=== PATIENT | female | born 1970 | race Caucasian/White ===

== ENCOUNTER 2022-01-10 15:51 | Outpatient (CLI) | payer BC, SELFPAY ==
--- NOTE | 2022-01-10 16:00 | US_ITS ---
STUDY: SUPERFICIAL ULTRASOUND - BILATERAL KNEES REASON FOR EXAM: Female, 51 years old. LLE SYNOVIAL CYST TECHNIQUE: A superficial ultrasound was performed with real-time and static jimenes-scale imaging. COMPARISON: None. FINDINGS: In the left lower extremity posterior to the knee there is a 4.6 x 3.3 x 2 cm cystic lesion compatible with Granda''s cyst. In the right lower extremity posterior to the knee there is a similar 2.6 x 3.3 x 0.8 cm cystic lesion also compatible with Granda''s cyst. 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 Electronically Signed: Heron Roberts MD at 23:40 EDT ,
== END 2022-01-10 23:59 | disposition home or self-care (01) ==
LOC: US 15:58
PROVIDERS: PCP Family Medicine; Referring Provider Physician Assistant; Visit Provider Physician Assistant
DX: M25.469 Effusion, unspecified knee (principal); M71.22 Synovial cyst of popliteal space [Baker], left knee
CPT/HCPCS: 76882

== ENCOUNTER 2022-06-17 05:53 | Day surgery (SDC) | payer BC, SELFPAY ==
--- NOTE | 2022-06-11 16:24 | PCM.HP.BLA ---
History and Physical Date of Admission: 06/17/22 HPI: The patient is a 51 year old female presenting for pre-operative visit. She is scheduled for Hysteroscopy D&C, possible polyp resection for AUB and thickened endometrium on 06/17/22. Procedure discussed along with risks, benefits and complications. Other alternatives discussed for management. Consent form signed? Yes. ? ? PAST MEDICAL HISTORY PAST MEDICAL HISTORY Diagnosis Date ? BRCA negative 08/14/2020 ? [employer] Common cancer gene panel ? 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 Constipation 08/16/2014 ? COVID-19 virus infection 10/22/2021 ? 10/2021 ? 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 Ex-smoker 05/06/2016 ? Started at age 20 up to 1 PPD and still smokes off and on for short periods of time. Quite 2000 ? Fibroid uterus 08/29/2014 ? Folliculitis 01/28/2019 ? Ganglion cyst 03/18/2019 ? History of COVID-19 10/22/2021 ? 10/2021 ? Lung nodules 03/26/2022 ? Malignant neoplasm of right female breast (HCC) 08/02/2020 ? Papanicolaou smear of cervix with atypical squamous cells of undetermined significance (ASC-US) 2004 ? negative hpv ? PMH - PAST MEDICAL HISTORY OF 1992 ? bulimia ? ? PAST SURGICAL HISTORY PAST SURGICAL HISTORY Procedure Laterality Date ? IMPLANON INSERTION ? 02/29/2008 ? IMPLANON INSERTION ? 06/24/2011 ? IMPLANON REMOVAL ? 02/25/2011 ? IMPLANON REMOVAL ? 05/16/2014 ? MASTECTOMY, SIMPLE, COMPLETE Right 08/14/2021 ? MASTECTOMY,SIMPLE Right 08/14/2020 ? DCIS ? PAST SURGICAL HISTORY OF ? 1971 ? congenital club foot left side repair at less than [age] year of age. ? RPR UMBILICAL HERNIA < 5 YRS REDUCIBLE ? 1977 ? Hernia repair, umbilical ? ? ? CURRENT MEDICATIONS Current Outpatient Medications Medication Sig Dispense Refill ? calcitriol (ROCALTROL) 0.5 mcg capsule Take 2 capsules by mouth once daily. 60 capsule 5 ? tamoxifen (NOLVADEX) 20 mg tablet Take 1 tablet (20 mg) by mouth once daily. 90 tablet 3 ? Vitamin A17-Jajim Acid 0.5-1 mg tab Take by mouth. ? ? ? iron,carb/vit C/vit B12/folic (IRON 100 PLUS ORAL) Take by mouth. ? ? ? Ca-D3-mag ql-pifz-iyq-kendrick-bor 600 mg calcium- 20 mcg-50 mg tab Take by mouth. ? ? ? inulin (FIBER GUMMIES) 2 gram chew Take 2 tablets by mouth once daily. ? 0 ? No current facility-administered medications for this visit. ? ? ALLERGIES: Patient has no known allergies. ? PERSONAL HISTORY: SOCIAL HISTORY Social History ? Tobacco Use ? Smoking status: Former ? ? Packs/day: 0.50 ? ? Years: 5.00 ? ? Pack years: 2.50 ? ? Types: Cigarettes ? ? Quit date: 04/04/1999 ? ? Years since quittin.2 ? Smokeless tobacco: Never Vaping Use ? Vaping Use: Never used Substance Use Topics ? Alcohol use: Not Currently ? ? Alcohol/week: 6.0 - 7.0 standard drinks ? ? Types: 6 - 7 Glasses of Wine (5oz) per week ? Drug use: No ? FAMILY HISTORY: FAMILY HISTORY FAMILY HISTORY Problem Relation Age of Onset ? Cancer Mother ? ? skin ? Alcohol/Drug Father ? ? Emphysema Father ? ? smoker ? No Known Problems Sister ? ? No Known Problems Sister ? ? Breast Cancer Maternal Grandmother 65 ? recurrence age 85 ? Cancer Maternal Grandmother ? ? kidney ? Alzheimer's Disease Maternal Grandmother ? ? Cancer Maternal Grandfather ? ? LUNG ? Arthritis Paternal Grandmother ? ? Heart Paternal Grandmother ? ? ENLARGED HEART, ? Diabetes Paternal Grandfather ? ? Emphysema Paternal Grandfather ? ? Hypertension Paternal Grandfather ? ? No Known Problems Daughter ? ? No Known Problems Son ? ? No Known Problems Son ? ? Cancer Maternal Aunt 74 ? uterine ? other (Polio) Maternal Aunt 4 ? Prostate Cancer Maternal Uncle ? ? Skin Cancer Maternal Uncle ? ? Coronary Artery Disease Maternal Uncle ? ? ? REVIEW OF SYMPTOMS: GENERAL: denies fevers or chills ENDOCRINOLOGY: has not been on steroids Cardiology : denies palpitations or chest pain Respiratory: denies SOB or cough Hematology: denies history of prolonged bleeding or easy bruising or VTE Allergy: Denies history of personal or family history of allergy to anesthesia ? PHYSICAL EXAMINATION: ? VITALS: Blood pressure 104/62, weight 146 lb (66.2 kg), last menstrual period 07/18/2020. ? GENERAL: The patient is well nourished, well hydrated in no acute distress. , The patient is oriented to time, place, and person. NECK: Supple. No lynphadenopathy, normal thyroid, no thyromegaly. LUNGS: Clear to auscultation bilaterally. no wheezes, rhonchi or rales HEART: Regular rate and rhythm, Normal heart sounds, and No murmurs or gallops ? IMPRESSION: AUB, endometrial thickending on US ? PLAN: The risks/benefits/alternatives and personal involved for the planned hysteroscopy D&C were reviewed with the patient. Her questions were answered to her satisfaction and she desires to proceed. Consent was signed. I reviewed with her postop instructions and expectations. ? ? I have reviewed and updated past medical and surgical history, medications and allergies Assessment & Plan Assessment/Plan (1) Abnormal uterine bleeding (AUB): (2) Endometrial thickening on ultrasound:
[2022-06-17 06:35] LABS: Internal QC Validated? YES +Cl - CLEAR BKGD; Pregnancy, Urine Negative Negative
[2022-06-17 06:41] LABS: Hematocrit 34.8 % (37-47); Hemoglobin 11.5 g/dL (12.0-15.0); Mean Corpuscular Hgb 31.3 pg (27.0-32.0); Mean Corpuscular Volume 94.8 fL (81-99); Mean Platelet Vol. 9.2 fl (6.2-12.0); Platelet Count 257 K/mm3 (150-450); RBC Distribution Width CV 12.4 % (11.6-14.6); RBC Distribution Width SD 43.3 fl (35.1-43.9); Red Blood Count 3.67 M/mm3 (4.2-5.4); White Blood Count 4.9 K/mm3 (4.4-11.0)
[2022-06-17 06:42] VITALS: BP 105/72; PULSE 77; RESP 18; TEMP 36.8; O2SAT 99; BMI 25.0
[2022-06-17] MEDS: Acetaminophen 500 MG Tablet 1000 MG PO (06:49)
[2022-06-17] MEDS: Ketorolac 30 MG/ML Syringe IV (06:49)
[2022-06-17] MEDS: Lactated Ringers 1,000 ML 15 ML IV (06:50)
--- NOTE | 2022-06-17 07:30 | EMB_PTH ---
PATIENT: [facility] LOC: [facility] [place] U#:[id number] AGE/SX: 51/F ROOM: RE06/17/[address]: Dr. Lisa Mosley, MDDOB: 1970 BED: DIS: 06/17/2022 SPEC #: [id number] RECD: 06/17/22 10:58 STATUS: [facility] #: [id number] SRIRAM: 06/17/22 07:[address]: Lisa Mosley DEPT: SURGICAL PATHOLOGY RECD BY: Jada Wheeler ENTERED: 06/17/22 11:43 SP TYPE: ENDOM BX/C HAYDEE DR: Dr. 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 See comment. KENA:alfonso 06/23/2022 COMMENT The specimen is sent to [facility] for expert opinion, reviewed by Dr. Tracie Zaman and the above diagnosis is rendered. Immunohistochemical stains performed at [facility] supports the above diagnosis. The complete report is viewable in the patient's EMR. Case has been reviewed in consultation with Dr. Friedman who concurs with the above diagnosis. IDC:AM MICROSCOPIC DESCRIPTION Slides are reviewed. GROSS DESCRIPTION Received in fixative is one container labeled with the patient's name and designated endometrial curettings. The specimen consists of multiple fragments of pink hemorrhagic soft tissue that in aggregate measure 7 x 4.5 x 2 cm. The entire specimen is submitted in 13 cassettes. / KENA:alfonso 06/17/2022 TC:0 CPT: 07296
--- NOTE | 2022-06-17 07:46 | PCM.OPRPT ---
Report of Operation Date of Procedure: 06/17/22 Pre-Operative Diagnosis: Thickened endometrium, AUB, personal use of Tamoxifen Post-Operative Diagnosis: same Surgery/Procedure Performed:: Hysteroscopy, D&C Description of Surgical Findings:: Thickened Endometrial tissue- does not appear polypoid. Was able to clear out all tissue and at end of proceudre Endometrium was thin and both tubal ostia visualized. Surgeon: Lisa Mosley skimmer reverberatory: None Type of Anesthesia: MAC Specimen's removed: Endometrial Curettings Drains: none Estimated Blood Loss (mL): 15cc Fluids Replaced: 800 Description of Procedure: Informed consent was obtained the patient was taken the operating room she was placed in supine position. She was given anesthesia. She was then [facility] where she was prepped and draped in the normal sterile fashion. At this time the weighted speculum was placed in the posterior fornix of vagina. Single-tooth tenaculum was used to gently grasp the anterior lip the cervix. At this time the uterine cavity was sounded to approximately 10 cm. Gentle dilatation was performed once adequate dilatation of the cervix was achieved the hysteroscope using normal saline as a distention medium was placed. Thick tissue appreciated- unable to visualize tubal ostia at this time. No well defined polyp or fibroid noted. Symphion resecting device used to obtain endometrial curettings entire cavity was cleared of tissue- excellent hemostasis appreciated- both tubal ostia visualized. No cavity defects or gross abnormalities noted. Obtained large amount of tissue. Tissue will be sent to pathology for evaluation. Tenaculum removed. some bleeding from tenaculum sites- pressure held. Good hemostasis. Instrument, lap count correct x 2. Fluid deficiet 650cc. Vaginal Sweep was negative. Grafts/Implants Used: none Procedure Start Time: 07:29 Procedure Stop Time: 07:40 Complications none Admit VTE Documentation VTE Present on Admission: Yes VTE Mechan Device Prophylaxis: SCD's VTE Pharm Prophylaxis ordered?: No Reason prophylaxis not ordered:: Procedure Not Indicated
--- NOTE | 2022-06-17 07:50 | EX.PCM.DISCH ---
Discharge Instructions Procedure D&C Diet Discharge Diet: No restrictions Activity May resume sexual activity in: 1 week Dressing / Incision Call your doctor if you observe: Fever of 101 or Higher, Inability to urinate, Using more than 1 pad per hour and Uncontrolled pain Follow Up Care Please Follow Up With: Lisa Mosley MD When: 1-2 weeks post OP if you need an appointment please call [phone] Test Results: Test results from this visit will be discussed in further detail at your follow-up appointment, if applicable. Discharge Plan Admission Attending Provider: Lisa Mosley Primary Care Provider: Srikanth Dominguez Discharge Orders/Prescriptions Prescriptions: No Action cyanocobalamin (vitamin B-12) [Vitamin B-12] 500 mcg Tablet 500 mcg PO DAILY ferrous fumarate 55 mg (18 mg iron) Tablet Extended Release 55 mg PO DAILY calcitriol 0.5 mcg capsule 1 mcg PO BID Label Comments: TAKE 2 CAPSULES BY MOUTH EVERY DAY cholecalciferol (vitamin D3) [Vitamin D3] 10 mcg (400 unit) Tablet,Chewable 10 mcg PO DAILY fish,bora,flax oils-om3,6,9no1 [Triple [place] 3-6-9] 400-400-400 mg Capsule 1 cap PO DAILY calcium carb-mag ox-zinc gluc 333-133-5 mg Tablet 3 tab PO DAILY Referrals / Follow Up: Srikanth Dominguez MD [Primary Care Provider] - Disposition Disposition (needs filled in before D/C Order can be placed): Home, Self Care
[2022-06-17 07:55] VITALS: BP 105/72; BP 90/60; PULSE 68; RESP 18; TEMP 36.7; O2SAT 96
[2022-06-17 07:59] VITALS: BP 105/72; BP 87/61; BP 88/57; PULSE 65; RESP 18; O2SAT 97
[2022-06-17 08:05] VITALS: BP 105/72; BP 93/63; PULSE 56; RESP 18; O2SAT 98
[2022-06-17 08:10] VITALS: BP 105/72; BP 88/61; PULSE 52; RESP 18; O2SAT 99
[2022-06-17 08:17] VITALS: BP 105/72; BP 89/57; PULSE 60; RESP 18; TEMP 36.8; O2SAT 99
== END 2022-06-17 08:51 | disposition home or self-care (01) ==
LOC: SDC 05:55 → AC 05:55
PROVIDERS: Obstetrics & Gynecology; PCP Family Medicine; Referring Provider Obstetrics & Gynecology; Visit Provider Obstetrics & Gynecology
PROC: 0UB98ZZ Excision of Uterus, Via Natural or Artificial Opening Endoscopic (ICD-10-PCS; CPT 58558; principal; 2022-06-17 07:15)
DX: N93.9 Abnormal uterine and vaginal bleeding, unspecified (principal); R93.89 Abnormal findings on diagnostic imaging of other specified body structures; F17.210 Nicotine dependence, cigarettes, uncomplicated; Z85.3 Personal history of malignant neoplasm of breast; Z86.16 Personal history of COVID-19; Z90.11 Acquired absence of right breast and nipple
CPT/HCPCS: 58558; 00952; 81025; 85027; 88305; J7120; J2405

== ENCOUNTER 2022-08-30 20:25 | Inpatient (IN) | payer BC, SELFPAY ==
[2022-08-30 20:26] VITALS: BP 127/101; PULSE 139; RESP 18; TEMP 37; O2SAT 100; BMI 22.3
[2022-08-30 20:30] VITALS: BP 127/101; PULSE 139; RESP 18; TEMP 37; O2SAT 100
[2022-08-30 20:39] VITALS: BP 126/77; PULSE 115; RESP 18; TEMP 36.9; O2SAT 100
--- NOTE | 2022-08-30 21:19 | EX.ED.DYSGE1 ---
HPI History of Present Illness Chief Complaint: Fever Informant: patient Onset/Context/Timing Onset: Today Context: Gradual Onset Timing: Continuous Current Severity: Mild Maximum Severity: Mild Narrative Narrative: -year-old female history of sarcoma diagnosed in June this year. He is seeing [facility] [place] and [place]. She had chemotherapy there as an outpatient on 08/20 through 08/24. She is also seeing an oncologist at the [facility]. Last 2 days she has felt fatigued. Today she developed a fever around 101 at home. And was told to come the emergency department to be evaluated. She denies any chest or abdominal pain. She denies any cough or shortness of breath. She denies any abdominal pain or dysuria. Prior similar symptoms: Yes Recent Illness/Hospitalization: No PFSH PFSH Medical History Cancer Former smoker History of pain when walking Shortness of breath on exertion Wears glasses Home Medications calcitriol 0.5 mcg capsule 1 mcg PO BID 06/16/22 [History Last Taken Unknown] calcium carbonate 333 mg-magnesium oxide 133 mg-zinc gluc 5 mg tablet 3 tab PO DAILY 06/16/22 [History Last Taken Unknown] cholecalciferol (vitamin D3) 10 mcg (400 unit) chewable tablet (Vitamin D3) 10 mcg PO DAILY 06/16/22 [History Last Taken Unknown] cyanocobalamin (vitamin B-12) 500 mcg tablet (Vitamin B-12) 500 mcg PO DAILY 06/16/22 [History Last Taken Unknown] ferrous fumarate 55 mg (18 mg iron) tablet,extended release 55 mg PO DAILY 06/16/22 [History Last Taken Unknown] fish, borage, flaxseed oils-omega 3,6,9 cb #1 400 mg-400 mg-400 mg cap (Triple [place] 3-6-9) 1 cap PO DAILY 06/16/22 [History Last Taken Unknown] Allergy/AdvReac Type Severity Reaction Status Date / Time No Known Allergies Allergy Verified 06/17/22 06:41 Surgical History Hx of clubfoot correction Hx of hernia repair Hx of right mastectomy Social History Smoking Status: Never smoker ROS ROS ED ROS Narrative Fever. Fatigue. Review of Systems ROS Unobtainable: Denies due to encephalopathy Constitutional Constitutional ED: Reports fever(s); Denies chills Eyes Eyes: Denies blurry vision ENT ENT ED: Denies ear pain Respiratory/Chest Respiratory/Chest: Denies cough Gastrointestinal Gastrointestinal: Denies abdominal pain Genitourinary Genitourinary ED: Denies dysuria or hematuria Musculoskeletal Musculoskeletal: Denies arthralgias Integumentary Denies abscess Neurologic Neurologic: Denies headache(s) Psychiatric Psychiatric: Denies anxiety Endocrine Endocrinology: Denies cold intolerance Hematologic/Lymphatic Hematologic/Lymphatic: Reports none Allergic/Immunologic Allergic/Immunologic ED: Denies mouth swelling or tongue swelling EXAM Physical Exam Narrative Exam Narrative: [id number] female no acute distress. Vital signs are stable currently she is afebrile temperature 98.6 here orally. She does not look septic or toxic. She is in no distress. H EENT exam unremarkable. Moist Riis membranes. Posterior pharynx normal. Neck nontender. No lymphadenopathy. No meningismus. Lungs clear to auscultation bilaterally. Heart regular rhythm rate about 115 no murmur. Chest wall nontender. Port left chest wall. Abdomen soft nontender normal bowel sounds no peritoneal signs. Back nontender. Skin no rashes. Moving all 4 extremities. Normal motor strength. Nontender. No redness or swelling. Neurologically she is awake and alert. Const Vital Signs: 08/30/22 20:26 08/30/22 20:30 08/30/22 20:39 Temperature 98.6 F 98.6 F 98.5 F Temperature Source Oral Oral Oral Pulse Rate 139 H 139 H 115 H Respiratory Rate 18 18 18 Respiratory Effort Respiratory Pattern Blood Pressure 127/101 H 127/101 H 126/77 H Blood Pressure Mean 109 109 93 Pulse Ox 100 100 100 Oxygen Delivery Method Room Air Room Air Room Air 08/30/22 20:41 08/30/22 21:36 08/30/22 21:37 Temperature Temperature Source Pulse Rate 104 H Respiratory Rate Respiratory Effort Normal Non-Labored Respiratory Pattern Normal Blood Pressure Blood Pressure Mean Pulse Ox Oxygen Delivery Method Room Air 08/30/22 21:37 Temperature 98.5 F Temperature Source Oral Pulse Rate 104 H Respiratory Rate 16 Respiratory Effort Respiratory Pattern Blood Pressure 122/79 H Blood Pressure Mean 93 Pulse Ox 100 Oxygen Delivery Method Room Air Positive well nourished and well developed; Negative for obese, cachectic, contractures or unkempt General Appearance ED: well developed and NAD; Negative for unkempt, cachectic, contractures, cyanotic or diaphoretic Nutritional Appearance: Negative for cachectic or obese HEENT Reports moist mucous membranes; Denies dry mucous membranes Negative for trauma or tenderness Mouth ED: No dry mucous membranes Mouth: No dry mucous membranes Eyes PERRL and EOMs intact bilaterally General Eye ED: Negative for pale conjunctiva or scleral icterus Neck no lymphadenopathy, supple and no JVD General: Negative for tenderness Lymph Lymphatic: Negative for other Chest Wall inspection of chest normal and palpation of chest normal Chest Narrative: Left chest wall port. Chest: Negative for other Resp normal respiratory effort and clear to auscultation bilaterally Effort and Inspection: Negative for retractions Auscultation: Negative for rales, rhonchi or wheezes Cardio regular rhythm, S1 normal heart sound, S2 normal heart sound and no murmurs; Negative for regular rate Rate: tachycardic GI normal to inspection, nondistended, normoactive bowel sounds, non-tender, non-distended and no masses Inspection: Negative for abdominal distention Auscultation: normoactive bowel sounds Palpation: soft; Negative for tender or guarding Back/Spine no CVA tenderness General Back: Negative for CVA tenderness Cervical Spine: Negative for cervical spine tenderness Thoracic Spine / Upper Back: Negative for thoracic spinal tenderness or paraspinal muscle tenderness Lumbar Spine / Lower Back: Negative for lumbar spinal tenderness Extremity normal to inspection General Extremety ED: Negative for edema or tenderness General Extremity: Negative for edema Neuro oriented x3 and CN's II-XII intact bilaterally Sensorium / Orientation: alert; Negative for orientation impaired, lethargic or stuporous Motor Exam: strength 5/5 throughout Psych mental status grossly normal Appearance: Negative for unkempt Attitude: No agitated Mood & Affect: Negative for depressed or anxious Skin no rashes or lesions noted and no wounds General Skin Exam: elasticity normal Lesions: No lesion noted Rashes: No rashes noted Trauma: Negative for abrasion Wounds: Negative for wounds noted MDM MDM MDM Narrative Medical decision making narrative: 52-year-old female being treated with chemotherapy for sarcoma. Reportedly is neutropenic. Will be treated as neutropenic fever. Labs and cultures being obtained. Repeat exam patient is doing well at 10:30 PM. She and I went over her test results in light of her neutropenic fever with a white count of 0.2 and a fever of 10 1-1 03 at home. She will be started on IV antibiotics. I will speak to the hospitalist about admission. Lab Data Attestation: I reviewed the patient's lab results. Lab results narrative: CBC shows a white count of 0.2. H&H 8.4 and 23.4. Platelets of 10,000. Neutrophils 5.2. PT/INR 15 and 1.2. PTT 35.6. Electrolytes show sodium 134. Potassium back at 3.1. Gap of 8 normal BUN of 10 creatinine 0.76 glucose 139. Liver enzymes unremarkable. Chest x-ray negative. COVID and influenza negative. UA negative. Lactic acid normal. Labs: Laboratory Results - last 24 hr 08/30/22 08/30/22 08/30/22 21:10 21:10 21:10 WBC 0.2 L* RBC 2.69 L Hgb 8.4 L Hct 23.4 L MCV 87.0 MCH 31.2 MCHC 35.9 RDW Std Deviation 35.7 RDW Coeff of Jonas 11.2 L Plt Count 10 L* MPV 11.5 Immature Gran % (Auto) 0.000 Neut % (Auto) 5.2 L Lymph % (Auto) 89.5 H Dukes % (Auto) 5.3 Eos % (Auto) 0.0 Baso % (Auto) 0.0 Absolute Neuts (auto) 0.0 L Absolute Lymphs (auto) 0.17 L Nucleated RBC % 0 Differential Comment SCANNED Diff Path Review May foll Platelet Estimate MKD DEC PT 15.0 H INR 1.2 APTT 35.6 Sodium 134 L Potassium 3.1 L Chloride 100 Carbon Dioxide 26.0 Anion Gap 8 BUN 10 Creatinine 0.76 Estim Creat Clear Calc 73.26 Est GFR (MDRD) Af Amer 104 Est GFR (MDRD) Non-Af 86 BUN/Creatinine Ratio 13.2 Glucose 139 H Lactic Acid Calcium 9.2 Total Bilirubin 0.80 AST 10 L ALT 25 Alkaline Phosphatase 30 L Total Protein 7.2 Albumin 3.6 Globulin 3.6 Albumin/Globulin Ratio 1.0 Urine Color Urine Clarity Urine pH Ur Specific [place] Urine Protein Urine Glucose (UA) Urine Ketones Urine Occult Blood Urine Nitrite Urine Bilirubin Urine Urobilinogen Ur Leukocyte Esterase Urine RBC Urine WBC Ur Squamous Epith Cells Urine Bacteria Urine Mucus 08/30/22 08/30/22 21:10 21:30 WBC RBC Hgb Hct MCV MCH MCHC RDW Std Deviation RDW Coeff of Jonas Plt Count MPV Immature Gran % (Auto) Neut % (Auto) Lymph % (Auto) Dukes % (Auto) Eos % (Auto) Baso % (Auto) Absolute Neuts (auto) Absolute Lymphs (auto) Nucleated RBC % Differential Comment Diff Path Review Platelet Estimate PT INR APTT Sodium Potassium Chloride Carbon Dioxide Anion Gap BUN Creatinine Estim Creat Clear Calc Est GFR (MDRD) Af Amer Est GFR (MDRD) Non-Af BUN/Creatinine Ratio Glucose Lactic Acid 0.8 Calcium Total Bilirubin AST ALT Alkaline Phosphatase Total Protein Albumin Globulin Albumin/Globulin Ratio Urine Color Straw Urine Clarity Clear Urine pH 7.0 Ur Specific [place] 1.010 Urine Protein 30 H Urine Glucose (UA) Normal Urine Ketones Negative Urine Occult Blood 50 H Urine Nitrite Negative Urine Bilirubin Negative Urine Urobilinogen Normal Ur Leukocyte Esterase Negative Urine RBC 0 SEEN Urine WBC 0 SEEN Ur Squamous Epith Cells 0 SEEN Urine Bacteria 0 SEEN Urine Mucus 0 SEEN Radiography Chest X-Ray - ED: 2 View, Read by ED Physician, Heart, Lungs, Mediastinum, Bony Structures, No Acute Disease and Chronic Changes Diagnostic Testing: Chest x-ray, 2 views AP and lateral shows no acute abnormality. No infiltrate. No pneumonia. Normal cardiac silhouette mediastinum. Discharge Plan Triage Chief Complaint: Fever ED Provider: Renan Kay Dx/Rx/DC Orders Clinical Impression: Neutropenia with fever, History of sarcoma, Acquired immunocompromised state Prescriptions: No Action cyanocobalamin (vitamin B-12) [Vitamin B-12] 500 mcg Tablet 500 mcg PO DAILY ferrous fumarate 55 mg (18 mg iron) Tablet Extended Release 55 mg PO DAILY calcitriol 0.5 mcg capsule 1 mcg PO BID Label Comments: TAKE 2 CAPSULES BY MOUTH EVERY DAY cholecalciferol (vitamin D3) [Vitamin D3] 10 mcg (400 unit) Tablet,Chewable 10 mcg PO DAILY fish,bora,flax oils-om3,6,9no1 [Triple [place] 3-6-9] 400-400-400 mg Capsule 1 cap PO DAILY calcium carb-mag ox-zinc gluc 333-133-5 mg Tablet 3 tab PO DAILY Primary Care Provider: Srikanth Dominguez Referrals: Srikanth Dominguez MD [Primary Care Provider] - Disposition Disposition: Acute Care Hospital [facility]
[2022-08-30] MEDS: 0.9% Normal Saline 1,000 ML 50 ML IV (21:32)
[2022-08-30 21:37] VITALS: BP 122/79; PULSE 104; RESP 16; TEMP 36.9; O2SAT 100
[2022-08-30 21:40] LABS: Absolute Lymphocyte Count 0.17 X10^3/uL (0.83-4.51); Hematocrit 23.4 % (37-47); Hemoglobin 8.4 g/dL (12.0-15.0); Lymphocyte # 0.17 X10^3/ul (0.83-4.51); Lymphocyte % 89.5 % (19-41); Mean Corp Hgb Conc 35.9 g/dL (32-36); Mean Corpuscular Hgb 31.2 pg (27.0-32.0); Mean Platelet Vol. 11.5 fl (6.2-12.0); Monocyte# 0.01 X10^3/uL; Monocyte% 5.3 % (0-10); NRBC Flagged by Analyzer 0 % (0-5); Neutrophil # 0.01 X10^3/uL (2.7-7.7); Neutrophil % 5.2 % (47-70); POSITIVE COUNT YES; POSITIVE DIFFERENTIAL YES; POSITIVE MORPHOLOGY YES; RBC Distribution Width CV 11.2 % (11.6-14.6); RBC Distribution Width SD 35.7 fl (35.1-43.9); Red Blood Count 2.69 M/mm3 (4.2-5.4)
--- NOTE | 2022-08-30 21:40 | RAD_ITS ---
STUDY: X-RAY CHEST REASON FOR EXAM: Female, 52 years old. Neutropenic Fever TECHNIQUE: Frontal and lateral views of the chest. COMPARISON: None. FINDINGS: Right subclavian catheter terminates in the superior vena cava. No pneumothorax. The lungs are clear and expanded. There is no demonstrated pleural abnormality. Normal size heart. Normal mediastinum and robson. Normal visualized pulmonary arteries. Normal visualized aortic arch and descending thoracic aorta. Normal visualized thoracic spine. Normal visualized ribs, clavicles, and shoulders. There is no demonstrated abnormality of the visualized soft tissue structures of the upper abdomen. RAD/Chest PA and Lateral IMPRESSION: No acute disease Electronically Signed: Ifeanyi Finnegan MD at 22:36 EST ,
[2022-08-30 21:41] LABS: Bacteria 0 SEEN /hpf (None Seen); Mucous, Urine 0 SEEN /hpf (<or=2+); Red Blood Cells-Urine 0 SEEN /hpf (0-5); Squamous Epithelial Cells - UA 0 SEEN /hpf (5-10); White Blood Cells 0 SEEN /hpf (0-5)
[2022-08-30 21:43] LABS: AST(SGOT) 10 U/L (15-37); Alanine Aminotransfer ALT/SGPT 25 U/L (13-56); Albumin, Serum 3.6 g/dL (3.2-5.0); Alkaline Phosphatase 30 U/L (45-117); Anion Gap 8 (5-15); BUN 10 mg/dL (7-18); BUN/Creat Ratio 13.2 RATIO (10-20); Calcium,Total 9.2 mg/dL (8.5-10.1); Chloride 100 mmol/L (98-107); Creatinine, Serum 0.76 mg/dL (0.55-1.02); EST Glomerular Filtration Rate 86 mL/min (>60); Est Glom Filt Rate - Afr Amer 104 mL/min (>60); Estimated Creatinine Clearance 73.26 ml/min; Globulin 3.6 g/dL (2.2-4.2); Glucose 139 mg/dL (74-106); Potassium 3.1 mmol/L (3.5-5.1); Protein, Total 7.2 g/dL (6.4-8.2); Sodium Level 134 mmol/L (136-145)
[2022-08-30 21:43] LABS: Color, Urine Straw (Yellow); Glucose, Dipstick Normal (Normal); Ketone-Dipstick Negative (Negative); Leukocyte Esterase-Dipstick Negative /ul (Negative); Nitrite-Dipstick Negative (Negative); Occult Blood-Urine 50 /ul (Negative); Protein-Dipstick 30 mg/dl (Negative); Urine Bilirubin Dipstick Negative (Negative); Urine Clarity Clear (Clear); Urine Urobilinogen Normal (Normal)
[2022-08-30 21:53] LABS: Lactic Acid 0.8 mmol/L (0.4-1.9)
[2022-08-30 21:56] LABS: International Normalized Ratio 1.2
[2022-08-30 21:57] LABS: Partial Thromboplast Time 35.6 Seconds (24.1-36.2)
[2022-08-30 22:00] LABS: Differential Indicated SCAN CRITERIA MET; Platelet Count 10 K/mm3 (150-450); White Blood Count 0.2 K/mm3 (4.4-11.0)
[2022-08-30 22:09] LABS: Differential Comment SCANNED
[2022-08-30 22:13] LABS: Platelet Estimate MKD DEC (ADEQ)
[2022-08-30 22:51] VITALS: BP 122/78; PULSE 113; RESP 16; TEMP 37.7; O2SAT 100
[2022-08-30 22:52] VITALS: BP 122/78; PULSE 117; RESP 18; TEMP 37.7; O2SAT 100
--- NOTE | 2022-08-30 23:22 | PCM.HP.STD ---
HPI - General General Date of Admission: 08/30/22 Date of Service: 08/30/22 Chief Complaint: Fever HPI Narrative CLOVIS WEST, is a 52 F with a significant history of uterine adenosarcoma status post hysterectomy, and chemotherapy. Patient follows up with [facility] in [place] and had chemotherapy from August 20 to 2021. On day of this presentation patient developed a fever of more than 100 Fahrenheit at home. Also she complains of persistent fatigue that started about 2 days ago. [facility] Medical History Anxiety Cancer Former smoker History of pain when walking Shortness of breath on exertion Wears glasses Home Medications ondansetron 8 mg disintegrating tablet 8 mg PO Q8H PRN PRN Nausea 08/31/22 [History Last Taken 08/30/22 17:00] potassium chloride 10 mEq capsule,extended release 20 meq PO DAILY supplement 08/31/22 [History Last Taken 08/30/22 11:00] prochlorperazine maleate 10 mg tablet 10 mg PO Q6H PRN PRN Nausea 08/31/22 [History Last Taken Unknown] sennosides 8.6 mg-docusate sodium 50 mg tablet (Senexon-S) 2 tab PO BID bowels 08/31/22 [History Last Taken 08/30/22 11:00] sodium di- and monophosphate-potassium phos monobasic 250 mg tablet (U-Veud-Cvuqxaz) 2 tab PO DAILY supplement 08/31/22 [History Last Taken 08/30/22 11:00] Allergy/AdvReac Type Severity Reaction Status Date / Time No Known Allergies Allergy Verified 06/17/22 06:41 Family History Other Cancer Surgical History History of hysterectomy for cancer Hx of clubfoot correction Hx of hernia repair Hx of right mastectomy Social History Smoking Status: Former smoker ROS ROS Narrative Pertinent positives and pertinent negatives as noted in HPI. All other systems were reviewed and are negative Vital Signs Vital Signs Vital Signs: 08/30/22 20:26 08/30/22 20:30 08/30/22 20:39 Temperature 98.6 F 98.6 F 98.5 F Temperature Source Oral Oral Oral Pulse Rate 139 H 139 H 115 H Respiratory Rate 18 18 18 Respiratory Effort Respiratory Pattern Blood Pressure 127/101 H 127/101 H 126/77 H Blood Pressure Mean 109 109 93 Pulse Ox 100 100 100 Oxygen Delivery Method Room Air Room Air Room Air 08/30/22 20:41 08/30/22 21:36 08/30/22 21:37 Temperature Temperature Source Pulse Rate 104 H Respiratory Rate Respiratory Effort Normal Non-Labored Respiratory Pattern Normal Blood Pressure Blood Pressure Mean Pulse Ox Oxygen Delivery Method Room Air 08/30/22 21:37 08/30/22 22:51 08/30/22 22:52 Temperature 98.5 F 100 F H 100 F H Temperature Source Oral Oral Oral Pulse Rate 104 H 113 H 117 H Respiratory Rate 16 16 Respiratory Effort Respiratory Pattern Blood Pressure 122/79 H 122/78 H Blood Pressure Mean 93 92 Pulse Ox 100 100 Oxygen Delivery Method Room Air Room Air 08/30/22 22:52 Temperature 100 F H Temperature Source Oral Pulse Rate 117 H Respiratory Rate 18 Respiratory Effort Respiratory Pattern Blood Pressure 122/78 H Blood Pressure Mean 92 Pulse Ox 100 Oxygen Delivery Method Room Air Weight Weight: 57.1 kg Body Mass Index (BMI) 22.3 Physical Exam Narrative Physical exam: General: Well-nourished, well-developed. Head: Normocephalic, atraumatic, no tenderness Eyes: Vision is grossly intact. EOMI ENT, no trauma, moist mucous membranes, no rhinorrhea Neck: Nontender, full range of motion, no spinal tenderness, deformities, step-off CVS: Tachycardia. S1-S2 present. No murmur, gallop or rub. Respiratory : clear to auscultation bilaterally, chest wall nontender, no wheezing Abdomen: Soft, nontender, nondistended, normal bowel sounds, no masses : Deferred Back: Nontender, no CVA tenderness, no midline spinal tenderness, deformities, step-offs Extremities: Nontender full range of motion, no trauma Skin: Normal color, no trauma, abrasions Neuro: Alert, oriented, cranial nerves II through XII grossly intact. Psychiatry: Normal mood. Normal affect. Not depressed. Not anxious. Results Lab / Micro Data Result Diagrams: 08/30/22 21:10 08/30/22 21:10 Labs: Laboratory Results - last 24 hr 08/30/22 21:10: WBC 0.2 L*, RBC 2.69 L, Hgb 8.4 L, Hct 23.4 L, MCV 87.0, MCH 31.2, MCHC 35.9, RDW Std Deviation 35.7, RDW Coeff of Jonas 11.2 L, Plt Count 10 L*, MPV 11.5, Immature Gran % (Auto) 0.000, Neut % (Auto) 5.2 L, Lymph % (Auto) 89.5 H, [place] % (Auto) 5.3, Eos % (Auto) 0.0, Baso % (Auto) 0.0, Absolute Neuts (auto) 0.0 L, Absolute Lymphs (auto) 0.17 L, Nucleated RBC % 0, Differential Comment SCANNED, Diff Path Review February, Platelet Estimate MKD 08/30/22 21:10: PT 15.0 H, INR 1.2, APTT 35.6 08/30/22 21:10: Sodium 134 L, Potassium 3.1 L, Chloride 100, Carbon Dioxide 26.0, Anion Gap 8, BUN 10, Creatinine 0.76, Estim Creat Clear Calc 73.26, Est GFR (MDRD) Af Amer 104, Est GFR (MDRD) Non-Af 86, BUN/Creatinine Ratio 13.2, Glucose 139 H, Calcium 9.2, Total Bilirubin 0.80, AST 10 L, ALT 25, Alkaline Phosphatase 30 L, Total Protein 7.2, Albumin 3.6, Globulin 3.6, Albumin/Globulin Ratio 1.0 08/30/22 21:10: Lactic Acid 0.8 08/30/22 21:30: Urine Color Straw, Urine Clarity Clear, Urine pH 7.0, Ur Specific [place] 1.010, Urine Protein 30 H, Urine Glucose (UA) Normal, Urine Ketones Negative, Urine Occult Blood 50 H, Urine Nitrite Negative, Urine Bilirubin Negative, Urine Urobilinogen Normal, Ur Leukocyte Esterase Negative, Urine RBC 0 SEEN, Urine WBC 0 SEEN, Ur Squamous Epith Cells 0 SEEN, Urine Bacteria 0 SEEN, Urine Mucus 0 SEEN Micro: Microbiology 08/30/22 21:30 Nasal Secretion SARS-CoV-2 & FLU Antigen (Rapid) - Final Radiology Impression Chest X-Ray 08/30/22 21:40 IMPRESSION: No acute disease Electronically Signed: Ifeanyi Finnegan MD at 22:36 EST , Assessment & Plan Assessment/Plan (1) Neutropenia with fever: PLAN: Plan Neutropenic fever White count of 0.27. With absolute neutrophils of 0 Blood culture ordered at the emergency department, follow. Chest x-ray was visualized and independently interpreted. No acute disease seen. I agree with radiologist interpretation. Gentle IV hydration ordered. Urinalysis is unremarkable. DVT prophylaxis: SCDs ordered. Patient is not a candidate for chemical thromboprophylaxis secondary to thrombocytopenia. Charges/Coding Visit Charges Inpatient E&M: 91958 Init Hosp L2
[2022-08-30 23:59] VITALS: BMI 22.1
[2022-08-31] VITALS (21 sets, daily range): BP systolic 85–127; BP diastolic 53–74; PULSE 93–118; RESP 16–20; TEMP 36.7–39.6; O2SAT 96–100
[2022-08-31] MEDS: 0.9% Normal Saline 1,000 ML 100 ML IV ×2 (00:27→13:17)
[2022-08-31] MEDS: Potassium Chloride Oral Tablet 20 MEQ 40 MEQ PO (02:05)
[2022-08-31] MEDS: Acetaminophen 325 MG Tablet 650 MG PO ×3 (02:05→18:45)
[2022-08-31 06:00] LABS: Absolute Lymphocyte Count 0.16 X10^3/uL (0.83-4.51); Hematocrit 20.9 % (37-47); Hemoglobin 7.6 g/dL (12.0-15.0); Lymphocyte # 0.16 X10^3/ul (0.83-4.51); Lymphocyte % 88.9 % (19-41); Mean Corp Hgb Conc 36.4 g/dL (32-36); Mean Corpuscular Hgb 31.9 pg (27.0-32.0); Mean Corpuscular Volume 87.8 fL (81-99); Mean Platelet Vol. 9.7 fl (6.2-12.0); Monocyte# 0.01 X10^3/uL; Monocyte% 5.6 % (0-10); NRBC Flagged by Analyzer 0 % (0-5); Neutrophil # 0.01 X10^3/uL (2.7-7.7); Neutrophil % 5.5 % (47-70); POSITIVE COUNT YES; POSITIVE DIFFERENTIAL YES; POSITIVE MORPHOLOGY YES; RBC Distribution Width CV 11.3 % (11.6-14.6); Red Blood Count 2.38 M/mm3 (4.2-5.4)
[2022-08-31 06:16] LABS: Differential Indicated SCAN CRITERIA MET; White Blood Count 0.2 K/mm3 (4.4-11.0)
[2022-08-31 06:17] LABS: Platelet Count 6 K/mm3 (150-450)
[2022-08-31 06:30] LABS: Anion Gap 7 (5-15); BUN 8 mg/dL (7-18); BUN/Creat Ratio 13.1 RATIO (10-20); Calcium,Total 8.5 mg/dL (8.5-10.1); Chloride 106 mmol/L (98-107); Creatinine, Serum 0.61 mg/dL (0.55-1.02); EST Glomerular Filtration Rate 111 mL/min (>60); Est Glom Filt Rate - Afr Amer 134 mL/min (>60); Estimated Creatinine Clearance 91.27 ml/min; Glucose 118 mg/dL (74-106); Potassium 3.2 mmol/L (3.5-5.1); Sodium Level 136 mmol/L (136-145)
[2022-08-31 06:50] LABS: Differential Comment SCANNED
[2022-08-31 07:02] LABS: Platelet Estimate MKD DEC (ADEQ)
[2022-08-31] MEDS: 0.9% Normal Saline 1,000 ML 999 ML IV ×2 (07:42→08:46)
--- NOTE | 2022-08-31 08:03 | NURSING ---
Report called to ANGELICA Reddy in PCU. Pt tranferring to PCU 114.
[2022-08-31] MEDS: Senna/Docusate Sodium 1 Tablet 2 TABLET PO ×2 (10:11→20:44)
[2022-08-31] MEDS: Na Biphos/Potassium Phosphate PACKET 2 PACKET PO (10:12)
[2022-08-31] MEDS: Potassium Chloride Oral Tablet 20 MEQ PO (10:12)
[2022-08-31] MEDS: TBO-FILGRASTIM 300 MCG/0.5 ML ML SC (11:02)
--- NOTE | 2022-08-31 13:50 | PCM.PN.HOSP ---
Subjective Subjective Patient seen and examined. She had no active complaints. She denied any fever, chills, cough, chest pain, palpitations, dizziness, nausea, vomiting or diarrhea. She denies any urinary symptoms. REview of systems is otherwise negative. She was tachycardic and tachypneic today as well as being febrile. WBC is 0.2 and platelets are down to 6. Objective Data Objective Data Vital Signs: Vital Signs Temp Pulse Resp BP Pulse Ox O2 Del Method 100.6 F H 118 H 17 108/61 100 Room Air 08/31/22 12:35 08/31/22 12:35 08/31/22 12:35 08/31/22 12:35 08/31/22 12:35 08/31/22 12:35 Oxygen Delivery Method Room Air Weight: 124 lb 12.506 oz Body Mass Index (BMI) 22.1 Intake & Output: Intake and Output for Last 24 Hours 08/29/22 08/30/22 08/31/22 23:59 23:59 23:59 Intake Total 1100 / 1100 4066.67 / 4066.67 Output Total 1400 / 1400 Balance 1100 / 100 2666.67 / 2666.67 Lab / Micro Data Result Diagrams: 08/31/22 04:50 08/31/22 04:50 Labs: Laboratory Results - last 24 hr 08/30/22 21:10: WBC 0.2 L*, RBC 2.69 L, Hgb 8.4 L, Hct 23.4 L, MCV 87.0, MCH 31.2, MCHC 35.9, RDW Std Deviation 35.7, RDW Coeff of Jonas 11.2 L, Plt Count 10 L*, MPV 11.5, Immature Gran % (Auto) 0.000, Neut % (Auto) 5.2 L, Lymph % (Auto) 89.5 H, [place] % (Auto) 5.3, Eos % (Auto) 0.0, Baso % (Auto) 0.0, Absolute Neuts (auto) 0.0 L, Absolute Lymphs (auto) 0.17 L, Nucleated RBC % 0, Differential Comment SCANNED, Diff Path Review February, Platelet Estimate MKD 08/30/22 21:10: PT 15.0 H, INR 1.2, APTT 35.6 08/30/22 21:10: Sodium 134 L, Potassium 3.1 L, Chloride 100, Carbon Dioxide 26.0, Anion Gap 8, BUN 10, Creatinine 0.76, Estim Creat Clear Calc 73.26, Est GFR (MDRD) Af Amer 104, Est GFR (MDRD) Non-Af 86, BUN/Creatinine Ratio 13.2, Glucose 139 H, Calcium 9.2, Total Bilirubin 0.80, AST 10 L, ALT 25, Alkaline Phosphatase 30 L, Total Protein 7.2, Albumin 3.6, Globulin 3.6, Albumin/Globulin Ratio 1.0 08/30/22 21:10: Lactic Acid 0.8 08/30/22 21:30: Urine Color Straw, Urine Clarity Clear, Urine pH 7.0, Ur Specific [place] 1.010, Urine Protein 30 H, Urine Glucose (UA) Normal, Urine Ketones Negative, Urine Occult Blood 50 H, Urine Nitrite Negative, Urine Bilirubin Negative, Urine Urobilinogen Normal, Ur Leukocyte Esterase Negative, Urine RBC 0 SEEN, Urine WBC 0 SEEN, Ur Squamous Epith Cells 0 SEEN, Urine Bacteria 0 SEEN, Urine Mucus 0 SEEN 08/31/22 04:50: WBC 0.2 L*, RBC 2.38 L, Hgb 7.6 L, Hct 20.9 L, MCV 87.8, MCH 31.9, MCHC 36.4 H, RDW Std Deviation 36.0, RDW Coeff of Jonas 11.3 L, Plt Count 6 L*, MPV 9.7, Immature Gran % (Auto) 0.000, Neut % (Auto) 5.5 L, Lymph % (Auto) 88.9 H, [place] % (Auto) 5.6, Eos % (Auto) 0.0, Baso % (Auto) 0.0, Absolute Neuts (auto) 0.0 L, Absolute Lymphs (auto) 0.16 L, Nucleated RBC % 0, Differential Comment SCANNED, Diff Path Review February bev, Platelet Estimate MKD 08/31/22 04:50: Sodium 136, Potassium 3.2 L, Chloride 106, Carbon Dioxide 23.0, Anion Gap 7, BUN 8, Creatinine 0.61, Estim Creat Clear Calc 91.27, Est GFR (MDRD) Af Amer 134, Est GFR (MDRD) Non-Af 111, BUN/Creatinine Ratio 13.1, Glucose 118 H, Calcium 8.5 08/31/22 08:40: Blood Type O NEGATIVE Micro: Microbiology 08/30/22 21:30 Urine, Clean Catch Urine Culture - Preliminary 08/30/22 21:30 Nasal Secretion SARS-CoV-2 & FLU Antigen (Rapid) - Final Radiography Diagnostic Testing: Radiology Impression Chest X-Ray 08/30/22 21:40 IMPRESSION: No acute disease Electronically Signed: Ifeanyi Finnegan MD at 22:36 EST Reading Location ID and State: [address] [place] [address] , Service support , Physical Exam Const alert, oriented x3 and no apparent distress HEENT head/scalp atraumatic, moist oral mucous membranes and oropharynx normal Head and Scalp: normocephalic Mouth: oral and palatal mucosa normal Eyes PERRL, EOMs intact bilaterally and conjunctivae normal Neck no lymphadenopathy and supple Resp normal respiratory effort, no retractions, no use of accessory muscles and clear to auscultation bilaterally Cardio regular rhythm, S1 normal heart sound, S2 normal heart sound and no murmurs Cardio Narrative: tachycardic GI normal to inspection, nondistended, normoactive bowel sounds, soft to palpation and non-tender Extremity normal to inspection, full ROM and no clubbing, cyanosis or edema Neuro oriented x3, CN's II-XII intact bilaterally, moves all extremities and no focal motor deficits Sensorium / Orientation: awake and alert Motor Exam: strength 5/5 throughout Psych affect normal Assessment & Plan Assessment/Plan (1) Neutropenia with fever: PLAN: Plan #Neutropenic fever has a history of uterine sarcoma, and had her first session of chemotherapy from August 20- at [facility] in [place] came in with complaints of a fever and lethargy wbc is 0.2, nad absolute neutrophil count is 0. Platelets are down to 10, from 6 yesterday on IV cefepime. Only one set of blood cultures ordered; will order 2 sets of blood cultures continue gentle hydration with iVF urine cultures pending #Leucopenia and thrombocytopenia wbc is 0.2, and absolute neutrophil count is 0. Platelets are down to 6, from [address] Tan; will give 2 units of apheresed platelets, and start on SC granix consult oncology #History of uterine sarcoma He underwent chemotherapy at cancer treatment [facility] from August 20 to . She says she is establish care with Dr. Segura at [facility] but is yet to see him. Oncology consulted. 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 Stable DVT prophylaxis: Lovenox CODE STATUS: Full code Disposition: Patient requiring staying transferred to [facility] because she was to be seen by Dr. Segura who is a sarcoma expert. I did explain to her that she was currently being managed for neutropenic fever, which could be handled here. She however requests to be placed on the waitlist for [facility] transfer. Transfer initiated with [facility]. Charges/Coding Visit Charges Inpatient E&M: 21373 Subs Hosp L3
[2022-08-31] MEDS: 0.9% Saline Lock 10 ML Syringe IV (15:14)
--- NOTE | 2022-08-31 17:54 | PCM.RX.CS ---
Consult Pharmacy has been consulted to manage selected antiobiotic: Vancomycin Type of Consult: New start Suspected Infection: Sepsis, Bacteremia Labs: Sodium 136 mmol/L (136-145) 08/31/22 04:50 Potassium 3.2 mmol/L (3.5-5.1) L 08/31/22 04:50 Chloride 106 mmol/L (98-107) 08/31/22 04:50 Carbon Dioxide 23.0 mmol/L (21.0-32.0) 08/31/22 04:50 Anion Gap 7 (5-15) 08/31/22 04:50 BUN 8 mg/dL (7-18) 08/31/22 04:50 Creatinine 0.61 mg/dL (0.55-1.02) 08/31/22 04:50 Est GFR (MDRD) Af Amer 134 mL/min (>60) 08/31/22 04:50 Est GFR (MDRD) Non-Af 111 mL/min (>60) 08/31/22 04:50 BUN/Creatinine Ratio 13.1 RATIO (10-20) 08/31/22 04:50 Glucose 118 mg/dL (74-106) H 08/31/22 04:50 Microbiology: Microbiology 08/30/22 21:30 Urine, Clean Catch Urine Culture - Preliminary 08/30/22 21:30 Nasal Secretion SARS-CoV-2 & FLU Antigen (Rapid) - Final Goal Trough: 15-20 mcg/mL Pharmacy Plan for Drug Dosing: NEW START IV VANCOMYCIN Consulting Physician: Dr. Vieyra Indication: Neutropenic Fever Goal Trough: 15-20 SrCr: 0.61 CrCl: 91 mls/min Comments: pt received a 1500mg (25mg/kg) loading dose on 08/31/22 at 1629 Vancomycin Dose: based on pts weight and renal function, recommend an initial dose of 1000mg iv q12h starting 09/01/22 at 0500. trough before the 4th total dose Pending Level: 09/02/22 at 0430 Pharmacy Service will continue to monitor and adjust dosing as required. Follow-Up Labs: Trough Vancomycin - 09/02/22 at 0430
[2022-09-01] VITALS (20 sets, daily range): BP systolic 94–107; BP diastolic 55–70; PULSE 76–110; RESP 16–18; TEMP 36.9–38.3; O2SAT 97–100
[2022-09-01] MEDS: Acetaminophen 325 MG Tablet 650 MG PO (03:29)
[2022-09-01] MEDS: Vancomycin IV 1,000 MG/200 ML BAG 200 MG IV (04:46)
[2022-09-01 05:27] LABS: Absolute Lymphocyte Count 0.11 X10^3/uL (0.83-4.51); Absolute Neutrophil Count 0.1 X10^3/uL (2.0-7.7); Hematocrit 17.3 % (37-47); Hemoglobin 6.1 g/dL (12.0-15.0); Lymphocyte # 0.11 X10^3/ul (0.83-4.51); Lymphocyte % 57.9 % (19-41); Mean Corp Hgb Conc 35.3 g/dL (32-36); Mean Corpuscular Hgb 31.3 pg (27.0-32.0); Mean Corpuscular Volume 88.7 fL (81-99); Mean Platelet Vol. 11.3 fl (6.2-12.0); Monocyte# 0.02 X10^3/uL; Monocyte% 10.5 % (0-10); NRBC Flagged by Analyzer 10.5 % (0-5); Neutrophil # 0.06 X10^3/uL (2.7-7.7); Neutrophil % 31.6 % (47-70); POSITIVE COUNT YES; POSITIVE DIFFERENTIAL YES; POSITIVE MORPHOLOGY YES; Platelet Count 20 K/mm3 (150-450); RBC Distribution Width CV 11.3 % (11.6-14.6); RBC Distribution Width SD 36.6 fl (35.1-43.9); Red Blood Count 1.95 M/mm3 (4.2-5.4); White Blood Count 0.2 K/mm3 (4.4-11.0)
[2022-09-01 06:13] LABS: Anion Gap 5 (5-15); BUN 6 mg/dL (7-18); BUN/Creat Ratio 11.5 RATIO (10-20); Calcium,Total 7.7 mg/dL (8.5-10.1); Chloride 107 mmol/L (98-107); Creatinine, Serum 0.52 mg/dL (0.55-1.02); EST Glomerular Filtration Rate 133 mL/min (>60); Est Glom Filt Rate - Afr Amer 161 mL/min (>60); Estimated Creatinine Clearance 107.07 ml/min; Glucose 111 mg/dL (74-106); Potassium 2.9 mmol/L (3.5-5.1); Sodium Level 136 mmol/L (136-145)
[2022-09-01 06:50] LABS: Differential Indicated SCAN CRITERIA MET
[2022-09-01 06:53] LABS: Platelet Estimate MKD DEC (ADEQ)
[2022-09-01] MEDS: Potassium Chloride 10mEq/100mL 10 MEQ/100 ML IV.SOLN. 100 MEQ IV BOLUS ×4 (08:30→11:52)
[2022-09-01] MEDS: 0.9% Saline Lock 10 ML Syringe IV ×3 (08:33→18:02)
--- NOTE | 2022-09-01 08:48 | PCM.RX.CS ---
Consult Pharmacy has been consulted to manage selected antiobiotic: Vancomycin Type of Consult: Follow-up Suspected Infection: Sepsis, Bacteremia Labs: Sodium 136 mmol/L (136-145) 09/01/22 04:27 Potassium 2.9 mmol/L (3.5-5.1) L 09/01/22 04:27 Chloride 107 mmol/L (98-107) 09/01/22 04:27 Carbon Dioxide 24.0 mmol/L (21.0-32.0) 09/01/22 04:27 Anion Gap 5 (5-15) 09/01/22 04:27 BUN 6 mg/dL (7-18) L 09/01/22 04:27 Creatinine 0.52 mg/dL (0.55-1.02) L 09/01/22 04:27 Est GFR (MDRD) Af Amer 161 mL/min (>60) 09/01/22 04:27 Est GFR (MDRD) Non-Af 133 mL/min (>60) 09/01/22 04:27 BUN/Creatinine Ratio 11.5 RATIO (10-20) 09/01/22 04:27 Glucose 111 mg/dL (74-106) H 09/01/22 04:27 Microbiology: Microbiology 08/30/22 21:30 Urine, Clean Catch Urine Culture - Preliminary 08/30/22 21:30 Nasal Secretion SARS-CoV-2 & FLU Antigen (Rapid) - Final Goal Trough: 15-20 mcg/mL Pharmacy Plan for Drug Dosing: DAILY ASSESSMENT Current Vancomycin Dose: 1000mg q12h (,17) Number of Doses Received: x1 1500mg loading dose, x1 1000mg dose Current Renal Function: SrCr is 0.52 Renal Function Trend: SrCr improving (was 0.61 on 08/31/22) Lab/Micro: Any Change in Vanc Plan: will change pt to 1250mg q12h due to improving renal function. Pending Level: 09/02/22 @ 1128 Pharmacy Service will continue to monitor and adjust dosing as required. Follow-Up Labs: Trough Vancomycin - 09/02/22 @ 1803
--- NOTE | 2022-09-01 08:51 | PN.HOSP_ITS ---
Subjective Subjective Patient seen and examined. She is feeling better today. She denies any fever, chills, cough, chest pain, palpitations, dizziness, nausea, vomiting or diarrhea. REview of systems is otherwise negative. Her tachycardia has improved, and her temperature is 98.5F this morning.S he did have a fever of 101F in the early hours of htis morning. Hypotension has improved and BP has been in the 100s systolic. Hb today is down to 6.1 Objective Data Objective Data Vital Signs: Vital Signs Temp Pulse Resp BP Pulse Ox O2 Del Method 98.5 F 89 18 103/55 L 97 Room Air 09/01/22 05:39 09/01/22 06:59 09/01/22 03:21 09/01/22 03:21 09/01/22 03:21 09/01/22 03:23 Oxygen Delivery Method Room Air Weight: 124 lb 12.506 oz Body Mass Index (BMI) 22.1 Intake & Output: Intake and Output for Last 24 Hours 08/30/22 08/31/22 09/01/22 23:59 23:59 23:59 Intake Total 1100 / 1100 6996.67 / 6996.67 300 / 300 Output Total 1400 / 1400 Balance 1100 / 100 5596.67 / 5596.67 300 / 300 Medical Nutrition Assessment Dietitian: Malnutrition Criteria Met Start: 08/31/22 15:52 Freq: Status: Active Protocol: Document 08/31/22 15:52 [facility] (Rec: 08/31/22 15:53 [facility] [id number]) Nutrition Malnutrition Evidence of Malnutrition Exists Yes Malnutrition (moderate): Chronic Evidenced By Suboptimal Energy Intake ( Moderate),Weight Loss (Severe) ,Physical Changes (Mild), Physical Changes (Moderate) Clinical Problem Chronic Disease or Condition Related Malnutrition Etiology related to physiological changes leading to decreased oral intakes Signs/Symptoms as evidenced by significant weight loss of 14.5%, or 21lb, within ~2.5 months, mild to moderate muscle and fat wasting per NFPA and pt reported decreased oral intakes < 75% of estimated nutrient needs for the past couple of months. Status Active Problem Recommendation Dietitian Recommendations/Changes Continue with Regular diet for liberalization as well as Ensure Compact 4x/day with medpass to help increase oral intakes in between meals. Will continue to follow the pt, and monitor oral intakes and weight changes, and make adjustments to interventions as needed. Lab / Micro Data Result Diagrams: 09/01/22 04:27 09/01/22 04:27 Labs: Laboratory Results - last 24 hr 08/31/22 08:40: Blood Type O NEGATIVE 08/31/22 08:40: Crossmatch See Detail 09/01/22 04:27: WBC 0.2 L*, RBC 1.95 L, Hgb 6.1 L, Hct 17.3 L, MCV 88.7, MCH 31.3, MCHC 35.3, RDW Std Deviation 36.6, RDW Coeff of Jonas 11.3 L, Plt Count 20 L*, MPV 11.3, Immature Gran % (Auto) 0.000, Neut % (Auto) 31.6 L, Lymph % (Auto) 57.9 H, [place] % (Auto) 10.5 H, Eos % (Auto) 0.0, Baso % (Auto) 0.0, Absolute Neuts (auto) 0.1 L, Absolute Lymphs (auto) 0.11 L, Nucleated RBC % 10.5 H, Diff Path Review February, Platelet Estimate MKD DEC 09/01/22 04:27: Sodium 136, Potassium 2.9 L, Chloride 107, Carbon Dioxide 24.0, Anion Gap 5, BUN 6 L, Creatinine 0.52 L, Estim Creat Clear Calc 107.07, Est GFR (MDRD) Af Amer 161, Est GFR (MDRD) Non-Af 133, BUN/Creatinine Ratio 11.5, Glucose 111 H, Calcium 7.7 L Micro: Microbiology 08/30/22 21:30 Urine, Clean Catch Urine Culture - Preliminary 08/30/22 21:30 Nasal Secretion SARS-CoV-2 & FLU Antigen (Rapid) - Final Physical Exam Const alert, oriented x3 and no apparent distress HEENT head/scalp atraumatic, moist oral mucous membranes and oropharynx normal Head and Scalp: normocephalic Mouth: oral and palatal mucosa normal Eyes PERRL, EOMs intact bilaterally and conjunctivae normal Neck no lymphadenopathy and supple Resp normal respiratory effort, no retractions, no use of accessory muscles and clear to auscultation bilaterally Cardio regular rate, regular rhythm, S1 normal heart sound, S2 normal heart sound and no murmurs GI normal to inspection, nondistended, normoactive bowel sounds, soft to palpation and non-tender Extremity normal to inspection, full ROM and no clubbing, cyanosis or edema Neuro oriented x3, CN's II-XII intact bilaterally, moves all extremities and no focal motor deficits Sensorium / Orientation: awake and alert Motor Exam: strength 5/5 throughout Psych affect normal Assessment & Plan Assessment/Plan (1) Neutropenia with fever: PLAN: Plan #Neutropenic fever * has a history of uterine sarcoma, and had her first session of chemotherapy from August 20- at [facility] in [place] * feels better today. Fever has resolved this morning * wbc remains 0.2, but absolute neutrophil count is up to 0.1 today, from 0 yesterday * on IV cefepime and IV vancomycin. Blood cultures and urine cultures pending * continue gentle hydration with IVF. Encourage oral intake * oncology and infectious disease consulted * #Pancytopenia * wbc remains 0.2, with platelets up to 20 from 6 today after transfusion with 2 units of platelets. * hb is down to 6.1 today * tranfuse 2 units of PRBCs today * on SC granix * oncology consulted * * #History of uterine sarcoma * She underwent chemotherapy at cancer treatment [facility] from August 20 to . * She has established care with Dr Segura at [facility] and tells me today she saw him recently at [facility] * patient had initially requested transfer to [facility], but now says she is ok with staying at [facility] for management of her neutropenic fever. * Patient wants to know when it will be ok for her to travel back to [place] for further chemotherapy at the [facility]. I counseled her that this would be a discussion she would need to have with oncology once they reviewed her. * Oncology consulted. 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 Stable * DVT prophylaxis: Lovenox CODE STATUS: Full code Charges/Coding Visit Charges Inpatient E&M: 35971 Subs Hosp L2
[2022-09-01] MEDS: Potassium Chloride Oral Tablet 20 MEQ 40 MEQ PO ×2 (09:28→18:03)
[2022-09-01] MEDS: Senna/Docusate Sodium 1 Tablet 2 TABLET PO ×2 (09:28→22:41)
[2022-09-01] MEDS: TBO-FILGRASTIM 300 MCG/0.5 ML ML SC (10:09)
[2022-09-01] MEDS: SOD PHOS DI, MONO/K PHOS MONO 250 MG TABLET 500 MG PO (12:39)
[2022-09-01 12:48] LABS: Pathologist Review Reviewed
[2022-09-01 12:49] LABS: Pathologist Review Reviewed
[2022-09-01 12:49] LABS: Pathologist Review Reviewed
--- NOTE | 2022-09-01 13:00 | CHAPLAIN ---
Type of Pastoral Visit _x__ Initial Visit ___ Follow-up Visit ___ On-call Visit ___ General Patient Visit ___ Spiritual Assessment ___ Family Conference ___ Bereavement ___ Rapid Response ___ Code Blue ___ Other (describe below) Pastoral Care Referral From _x__ Patient ___ Family ___ Nurse ___ Physician ___ Secretary Book Keeper ___ Form Drafter ___ Other (describe below) Sacrament/Intervention _x__ Active listening ___ Anointing ___ Latter-Day ___ Bereavement ___ Communion _x__ Alondra exploration ___ _x__ Life review _x__ Prayer ___ Reconciliation ___ Sacrament of Sick _x__ Supportive presence ___ Wedding ___ Other (describe below) Pastoral Comments patient several times expresses great appreciation for spiritual care support during this encounter; pt explains her health history and treatments in [place]; pt had returned for a short time to be with family; pt expresses concerns about this set back, her lobsterman health; pt speaks of her alondra in God and how she is attempting to find his plan in all of this; pt welcomes reflective conversation and spiritual perspectives; pt desires prayer support; pt offered future visits as desired
--- NOTE | 2022-09-01 13:25 | CASEMGMT ---
RN JOHN SENIOR LINUX UNIX ENGINEER CM to room to meet with patient for initial transition planning/care coordination assessment. ANGELICA LOPEZ introduced self and role at [facility]. Pt voices understanding and consents to assessment at this time. Pt resting in bed in no distress at this time. Pt is A/O at this time and answers all questions appropriately. Care providers, pharmacy, and demographics verified/updated at this time. PCP: Dr Dominguez Specialists: [facility]es [facility] [place]--pt states she needs to be back to [place] by Sep 09. Pt also just started seeing Dr Segura--[facility]/oncology. Preferred Pharmacy: [facility] Retail Insurance: [employer] Prescription Benefit: Yes Living Will/HPOA: Has both LW and HCPOA, who is her son, Tito. LNOK: , Roque. 3 kids, ages 22, 19, and 14. Son, Tito, is HCPOA. Living Arrangements: Lives w/her and 3 children. Pt independent w/ADL's and manages her own medications. Family assist w/home mgmt tasks. Transportation: Family DME: Denies using any DME and denies needs. HHC/SNF: No hx of either. No needs identified. Pt wishes to return home and states has no concerns with going home at time of discharge. CM to follow for any discharge planning/needs. Pt voices no further concerns/needs at this time. Advised pt to ask for CM if any further questions/concerns/needs arise. Voices understanding. PLAN: Home w/family support and discharge plans in place. Kg CENTENO RN, CM
--- NOTE | 2022-09-01 13:33 | CON.PCM.ID_ITS ---
Assessment & Plan Assessment/Plan (1) Neutropenia with fever: PLAN: Fever improved. Oncology consulted. Recent chemo. Will check resp viral pcr panel and CT abd/pelvis. Cont vanc/cefepime. 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 Came home for Thanksgiving, developed some fatigue the next day, then fever 08/30, came to ED, admitted on vanc/cefepime for neutropenic fever. No mouth sores, mild headache. No cough or SOB. No n/v/d. No dysuria. No issues with L chest line. starting to have some URI symptoms. Mild lower abd soreness. Full ROS performed and neg except as noted above. [facility] Medical History Anxiety Cancer Former smoker History of pain when walking Shortness of breath on exertion Wears glasses Home Medications ondansetron 8 mg disintegrating tablet 8 mg PO Q8H PRN PRN Nausea 08/31/22 [History Last Taken 08/30/22 17:00] potassium chloride 10 mEq capsule,extended release 20 meq PO DAILY supplement 08/31/22 [History Last Taken 08/30/22 11:00] prochlorperazine maleate 10 mg tablet 10 mg PO Q6H PRN PRN Nausea 08/31/22 [History Last Taken Unknown] sennosides 8.6 mg-docusate sodium 50 mg tablet (Senexon-S) 2 tab PO BID bowels 08/31/22 [History Last Taken 08/30/22 11:00] sodium di- and monophosphate-potassium phos monobasic 250 mg tablet (D-Xcha-Vypghbb) 2 tab PO DAILY supplement 08/31/22 [History Last Taken 08/30/22 11:00] Allergy/AdvReac Type Severity Reaction Status Date / Time No Known Allergies Allergy Verified 06/17/22 06:41 Family History Other Cancer Surgical History History of hysterectomy for cancer Hx of clubfoot correction Hx of hernia repair Hx of right mastectomy Social History Smoking Status: Former smoker Physical Exam Const alert, oriented x3 and no apparent distress General Appearance: cooperative HEENT normocephalic and head/scalp atraumatic Eyes PERRL and EOMs intact bilaterally Eyes Narrative: No oral lesions Neck supple and No nodes Resp normal air movement and clear to auscultation bilaterally Cardio regular rate, regular rhythm and no murmurs GI soft to palpation, non-tender and non-distended Extremity General Extremity: Negative for edema Skin no rashes or lesions noted Skin Narrative: L chest tunneled line, no redness/swelling Neuro CN's II-XII intact bilaterally Medical Records Data Medical Nutrition Assessment Dietitian: Malnutrition Criteria Met Start: 08/31/22 15:52 Freq: Status: Active Protocol: Document 08/31/22 15:52 [facility] (Rec: 08/31/22 15:53 [facility] [id number]) Nutrition Malnutrition Evidence of Malnutrition Exists Yes Malnutrition (moderate): Chronic Evidenced By Suboptimal Energy Intake ( Moderate),Weight Loss (Severe) ,Physical Changes (Mild), Physical Changes (Moderate) Clinical Problem Chronic Disease or Condition Related Malnutrition Etiology related to physiological changes leading to decreased oral intakes Signs/Symptoms as evidenced by significant weight loss of 14.5%, or 21lb, within ~2.5 months, mild to moderate muscle and fat wasting per NFPA and pt reported decreased oral intakes < 75% of estimated nutrient needs for the past couple of months. Status Active Problem Recommendation Dietitian Recommendations/Changes Continue with Regular diet for liberalization as well as Ensure Compact 4x/day with medpass to help increase oral intakes in between meals. Will continue to follow the pt, and monitor oral intakes and weight changes, and make adjustments to interventions as needed. Lab / Micro Data Attestation: I reviewed the patient's lab results. Result Diagrams: 09/01/22 04:27 09/01/22 04:27 Labs: Laboratory Results - last 24 hr 08/30/22 21:10: Diff Path Review Reviewed 08/31/22 04:50: Diff Path Review Reviewed 08/31/22 08:40: Blood Type Cancelled, A1 Antigen Typing Cancelled, Rho(D) Type Cancelled, Antibody Screen NEGATIVE, Crossmatch See Detail 09/01/22 04:27: WBC 0.2 L*, RBC 1.95 L, Hgb 6.1 L, Hct 17.3 L, MCV 88.7, MCH 31.3, MCHC 35.3, RDW Std Deviation 36.6, RDW Coeff of Jonas 11.3 L, Plt Count 20 L*, MPV 11.3, Immature Gran % (Auto) 0.000, Neut % (Auto) 31.6 L, Lymph % (Auto) 57.9 H, [place] % (Auto) 10.5 H, Eos % (Auto) 0.0, Baso % (Auto) 0.0, Absolute Neuts (auto) 0.1 L, Absolute Lymphs (auto) 0.11 L, Nucleated RBC % 10.5 H, Diff Path Review Reviewed, Platelet Estimate MKD 09/01/22 04:27: Sodium 136, Potassium 2.9 L, Chloride 107, Carbon Dioxide 24.0, Anion Gap 5, BUN 6 L, Creatinine 0.52 L, Estim Creat Clear Calc 107.07, Est GFR (MDRD) Af Amer 161, Est GFR (MDRD) Non-Af 133, BUN/Creatinine Ratio 11.5, Glucose 111 H, Calcium 7.7 L Micro: Microbiology 08/30/22 21:30 Urine, Clean Catch Urine Culture - Final Coag Negative Staph
--- NOTE | 2022-09-01 13:37 | CT_ITS ---
INDICATION: Neutropenic patient with fever, history uterine sarcoma, breast cancer, hysterectomy and right mastectomy EXAMINATION: CT ABDOMEN AND PELVIS WITH CONTRAST - CT Abdomen And Pelvis W/ Contrast Injection TECHNIQUE: Helically acquired images were obtained of the abdomen and pelvis following IV contrast. A radiation dose optimization technique was used for this scan. IV Contrast dosage and agent: 100 cc Isovue-300 Oral contrast: Yes COMPARISON: 08/01/2014 FINDINGS: LOWER CHEST: Trace bibasilar pleural effusions. No cardiomegaly or pericardial effusion. LIVER: Homogeneous. No focal mass. GALLBLADDER AND BILIARY TREE: No calcified gallstones. No gallbladder distension or wall edema. No intra- or extrahepatic biliary ductal dilation. PANCREAS: No focal cystic or solid mass. SPLEEN: Normal size without focal cystic or solid mass. ADRENAL GLANDS: No nodules. KIDNEYS AND URETERS: No hydronephrosis. PERITONEUM: No free air. Scattered ascites. BOWEL: Normal appendix. No stomach or bowel distension. No focal inflammatory change. LYMPH NODES: No enlarged mesenteric or retroperitoneal lymph nodes. VESSELS: Aorta is non-dilated. URINARY BLADDER: Unremarkable. REPRODUCTIVE ORGANS: Uterus absent. ABDOMINAL WALL: No discrete abdominal or pelvic wall hernia. BONES: No lytic or blastic abnormality. CT/Abdomen/Pelvis WITH Contrast IMPRESSION: Trace bibasilar pleural effusions. Scattered ascites. Electronically Signed: Salvador Lucia MD at 16:46 EST ,
[2022-09-02] VITALS (14 sets, daily range): BP systolic 95–103; BP diastolic 57–68; PULSE 87–109; RESP 15–18; TEMP 36.7–36.9; O2SAT 95–98
[2022-09-02 04:25] LABS: Absolute Lymphocyte Count 0.31 X10^3/uL (0.83-4.51); Absolute Neutrophil Count 0.4 X10^3/uL (2.0-7.7); Basophil# 0.02 X10^3/uL; Basophil% 2.4 % (0-1); Hematocrit 23.9 % (37-47); Hemoglobin 8.1 g/dL (12.0-15.0); Lymphocyte # 0.31 X10^3/ul (0.83-4.51); Lymphocyte % 37.8 % (19-41); Mean Corp Hgb Conc 33.9 g/dL (32-36); Mean Corpuscular Hgb 29.8 pg (27.0-32.0); Mean Corpuscular Volume 87.9 fL (81-99); Mean Platelet Vol. 11.4 fl (6.2-12.0); Monocyte# 0.06 X10^3/uL; Monocyte% 7.3 % (0-10); NRBC Flagged by Analyzer 0 % (0-5); Neutrophil # 0.43 X10^3/uL (2.7-7.7); Neutrophil % 52.5 % (47-70); POSITIVE COUNT YES; POSITIVE DIFFERENTIAL YES; POSITIVE MORPHOLOGY YES; Platelet Count 16 K/mm3 (150-450); RBC Distribution Width CV 12.8 % (11.6-14.6); RBC Distribution Width SD 41.1 fl (35.1-43.9); Red Blood Count 2.72 M/mm3 (4.2-5.4); White Blood Count 0.8 K/mm3 (4.4-11.0)
[2022-09-02 04:27] LABS: Differential Indicated SCAN CRITERIA MET
[2022-09-02 04:38] LABS: Anion Gap 4 (5-15); BUN 7 mg/dL (7-18); BUN/Creat Ratio 15.7 RATIO (10-20); Calcium,Total 8.2 mg/dL (8.5-10.1); Chloride 111 mmol/L (98-107); Creatinine, Serum 0.44 mg/dL (0.55-1.02); EST Glomerular Filtration Rate 159 mL/min (>60); Est Glom Filt Rate - Afr Amer 192 mL/min (>60); Estimated Creatinine Clearance 126.53 ml/min; Glucose 101 mg/dL (74-106); Potassium 3.6 mmol/L (3.5-5.1); Sodium Level 140 mmol/L (136-145)
[2022-09-02 04:45] LABS: Platelet Estimate MKD DEC (ADEQ)
[2022-09-02 04:58] LABS: Vancomycin, Trough Level 8.2 ug/mL (5.0-15.0)
--- NOTE | 2022-09-02 05:10 | PCM.RX.CS ---
Consult Pharmacy has been consulted to manage selected antiobiotic: Vancomycin Type of Consult: Follow-up Suspected Infection: Other Prior Doses of Antibiotics Received/Current Regimen: Medications Vancomycin HCl 1,250 mg/ (Sodium Chloride) 275 mls @ 167 mls/hr IV Q8H NAILA Vancomycin HCl 1,250 mg/ (Sodium Chloride) 275 mls @ 167 mls/hr IV Q12H NAILA Stop: 09/02/22 07:00 Last Admin: 09/02/22 04:55 Dose: 167 mls/hr Labs: Sodium 140 mmol/L (136-145) 09/02/22 04:17 Potassium 3.6 mmol/L (3.5-5.1) 09/02/22 04:17 Chloride 111 mmol/L (98-107) H 09/02/22 04:17 Carbon Dioxide 25.0 mmol/L (21.0-32.0) 09/02/22 04:17 Anion Gap 4 (5-15) L 09/02/22 04:17 BUN 7 mg/dL (7-18) 09/02/22 04:17 Creatinine 0.44 mg/dL (0.55-1.02) L 09/02/22 04:17 Est GFR (MDRD) Af Amer 192 mL/min (>60) 09/02/22 04:17 Est GFR (MDRD) Non-Af 159 mL/min (>60) 09/02/22 04:17 BUN/Creatinine Ratio 15.7 RATIO (10-20) 09/02/22 04:17 Glucose 101 mg/dL (74-106) 09/02/22 04:17 Vancomycin Trough 8.2 ug/mL (5.0-15.0) 09/02/22 04:17 Microbiology: Microbiology 09/01/22 14:15 Mucosa - Nose Respiratory Panel (PCR) - Final 08/30/22 21:30 Urine, Clean Catch Urine Culture - Final Coag Negative Staph 08/30/22 21:30 Nasal Secretion SARS-CoV-2 & FLU Antigen (Rapid) - Final Weight used for dosin.6 kg Estimated Creatinine Clearance: 127 Goal Trough: 15-20 mcg/mL Pharmacy Plan for Drug Dosing: Vancomycin trough level drawn 10?hrs post-dose was 8.2, below the target goal of 15-20. This fittingly accompanies the steady decrease in SCr. Per aminoglycoside dosing calculator a new frequency of 1250mg q8h will be started, and another trough will be drawn prior to the 4th dose of the new regimen. Pharmacy Service will continue to monitor and adjust dosing as required. Follow-Up Labs: Trough Vancomycin Labs to be done on [date and time ordered]: 09/03/22 @1236
--- NOTE | 2022-09-02 08:17 | PCM.CONS.B ---
Consult Date of Consult: 09/01/22 Reason for Consult Neutropenic fever, presumed sepsis Pancytopenia secondary to chemotherapy History of uterine sarcoma; status post complete hysterectomy HPI Suzanna WEST, is a 52 F with a significant history of uterine adenosarcoma status post complete hysterectomy, and started her first cycle of adjuvant chemotherapy.? Patient follows up with [facility] in [place] and had chemotherapy from August 20 to 2021. This is an experimental regiment with ifosfamide/mesna, Adriamycin, vincristine and etoposide. She drove back home for weekend and presented on Thursday with a fever of more than 100 Fahrenheit at home with increased lethargy.? Also she complains of persistent fatigue that started about 2 days ago. In the emergency room she was pancytopenic, platelet count 6000. There was no source of infection on chest x-ray blood culture and urine culture obtained. Patient started on empiric broad-spectrum antibiotic, cefepime and was given 2 unit of aphoresis platelet. She was also started on G-CSF sq daily for neutropenia. She is alert and orientated this morning. She has no clinical bleeding or petechiae. She felt a nodule around her labium but no pain or bleeding. She has no stomatitis or diarrhea. her oxygen saturation was normal on room air. Since this weekend, [facility] Medical History? Anxiety Uterine sarcoma Former smoker History of pain when walking Shortness of breath on exertion Wears glasses Home Medications ondansetron 8 mg disintegrating tablet 8 mg PO Q8H PRN PRN Nausea 08/31/22 [History Last Taken 08/30/22 17:00] potassium chloride 10 mEq capsule,extended release 20 meq PO DAILY supplement 08/31/22 [History Last Taken 08/30/22 11:00] prochlorperazine maleate 10 mg tablet 10 mg PO Q6H PRN PRN Nausea 08/31/22 [History Last Taken Unknown] sennosides 8.6 mg-docusate sodium 50 mg tablet (Senexon-S) 2 tab PO BID bowels 08/31/22 [History Last Taken 08/30/22 11:00] sodium di- and monophosphate-potassium phos monobasic 250 mg tablet (B-[id number]-Ieukvdw) 2 tab PO DAILY supplement 08/31/22 [History Last Taken 08/30/22 11:00] Allergy/AdvReac Type Severity Reaction Status Date / Time No Known Allergies Allergy ? ? Verified 06/17/22 06:41 Family History? Other Cancer Surgical History? History of hysterectomy for cancer Hx of clubfoot correction Hx of hernia repair Hx of right mastectomy Social History? Smoking Status:? Former smoker ROS ROS Narrative Pertinent positives and pertinent negatives as noted in HPI.? All other systems were reviewed and are negative Vital Signs ? 08/30/22 22:52 Temperature 100 F H Temperature Source Oral Pulse Rate 117 H Respiratory Rate 18 Respiratory Effort ? Respiratory Pattern ? Blood Pressure 122/78 H Blood Pressure Mean 92 Pulse Ox 100 Oxygen Delivery Method Room Air Weight Weight: ? 57.1 kg ? Body Mass Index (BMI) ? 22.3? Physical Exam Narrative Physical exam: General: Well-nourished, well-developed. Head: Normocephalic, atraumatic, no tenderness Eyes: Vision is grossly intact. EOMI ENT, no trauma, moist mucous membranes, no rhinorrhea Neck: Nontender, full range of motion, no spinal tenderness, deformities, step-off CVS: Tachycardia.? S1-S2 present.? No murmur, gallop or rub. Respiratory : clear to auscultation bilaterally, chest wall nontender, no wheezing Abdomen: Soft, nontender, nondistended, normal bowel sounds, no masses : Deferred Back: Nontender, no CVA tenderness, no midline spinal tenderness, deformities, step-offs Extremities: Nontender full range of motion, no trauma Skin: Normal color, no trauma, abrasions. No petechiae or ecchymosis. Neuro: Alert, oriented, cranial nerves II through XII grossly intact. Psychiatry: Normal mood.? Normal affect.? Not depressed.? Not anxious. Results Lab / Micro Data Result Diagrams: 08/30/22 21:10? 08/30/22 21:10? Labs: Laboratory Results - last 24 hr 08/30/22 21:10: WBC 0.2 L*,?RBC 2.69 L,?Hgb 8.4 L,?Hct 23.4 L, MCV 87.0, MCH 31.2, MCHC 35.9, RDW Std Deviation 35.7,?RDW Coeff of Jonas 11.2 L,?Plt Count 10 L*, MPV 11.5, Immature Gran % (Auto) 0.000,?Neut % (Auto) 5.2 L,?Lymph % (Auto) 89.5 H, [place] % (Auto) 5.3, Eos % (Auto) 0.0, Baso % (Auto) 0.0,?Absolute Neuts (auto) 0.0 L,?Absolute Lymphs (auto) 0.17 L, Nucleated RBC % 0, Differential Comment SCANNED, Diff Path Review Saumya pabol, Platelet Estimate MKD 08/30/22 21:10: PT 15.0 H, INR 1.2, APTT 35.6 08/30/22 21:10: Sodium 134 L,?Potassium 3.1 L, Chloride 100, Carbon Dioxide 26.0, Anion Gap 8, BUN 10, Creatinine 0.76, Estim Creat Clear Calc 73.26, Est GFR (MDRD) Af Amer 104, Est GFR (MDRD) Non-Af 86, BUN/Creatinine Ratio 13.2,?Glucose 139 H, Calcium 9.2, Total Bilirubin 0.80,?AST 10 L, ALT 25,?Alkaline Phosphatase 30 L, Total Protein 7.2, Albumin 3.6, Globulin 3.6, Albumin/Globulin Ratio 1.0 08/30/22 21:10:?Lactic Acid 0.8 08/30/22 21:30:?Urine Color Straw, Urine Clarity Clear, Urine pH 7.0, Ur Specific [place] 1.010,?Urine Protein 30 H, Urine Glucose (UA) Normal, Urine Ketones Negative,?Urine Occult Blood 50 H, Urine Nitrite Negative, Urine Bilirubin Negative, Urine Urobilinogen Normal, Ur Leukocyte Esterase Negative, Urine RBC 0 SEEN, Urine WBC 0 SEEN, Ur Squamous Epith Cells 0 SEEN, Urine Bacteria 0 SEEN, Urine Mucus 0 SEEN Micro: Microbiology 08/30/22 21:30 ? Nasal Secretion ? SARS-CoV-2 & FLU Antigen (Rapid) - Final Radiology Impression Chest X-Ray? 08/30/22 21:40 IMPRESSION: No acute disease ? Electronically Signed: Ifeanyi Finnegan MD at 22:36 EST Reading Location ID and State: [address] [place] [address] , Service support? , ? Plan Neutropenic fever White count of 0.27.? With absolute neutrophils of 0 Blood culture ordered at the emergency department, follow. Chest x-ray was visualized and independently interpreted.? No acute disease seen.? I agree with radiologist interpretation. Gentle IV hydration ordered. Urinalysis is unremarkable. Assessment & Plan Assessment/Plan (1) Neutropenia with fever: PLAN: - Continue broad-spectrum antibiotic pending results of blood and urine culture, and follow-up with ID. - Pelvic exam if indicated if she has bleeding or discharge with possible ulcers or hematoma in her labia. (2) History of sarcoma: PLAN: - Status post first cycle of adjuvant chemotherapy. Since this is a very aggressive regiment and she had neutropenic fever with her first cycle, I recommend that she stay in [place], [place] to complete her four cycles of adjuvant chemotherapy -Follow-up with oncologist at [facility] next week (3) Pancytopenia due to antineoplastic chemotherapy: PLAN: -CBC seems to be improving. Had taz this weekend. -Continue to monitor CBC daily -Continue Granix daily until ANC > 1000 -Transfuse platelet if < 10,000 PLAN: Plan - Patient agreed to follow-up with her oncologist next week at [facility].
[2022-09-02] MEDS: Potassium Chloride Oral Tablet 20 MEQ 40 MEQ PO ×2 (08:30→17:14)
[2022-09-02] MEDS: Senna/Docusate Sodium 1 Tablet 2 TABLET PO (09:57)
[2022-09-02] MEDS: SOD PHOS DI, MONO/K PHOS MONO 250 MG TABLET 500 MG PO (09:57)
[2022-09-02] MEDS: TBO-FILGRASTIM 300 MCG/0.5 ML ML SC (10:05)
[2022-09-02 11:17] LABS: Pathologist Review Reviewed
--- NOTE | 2022-09-02 11:31 | PN.HOSP_ITS ---
Subjective Subjective Patient seen and examined. She had no active complaints today and felt well. She says she spoke to her treatment team [facility] and she has been advised that they will reduce her chemotherapy dosage during her next cycle. She has remained afebrile and remains on room air. Objective Data Objective Data Vital Signs: Vital Signs Temp Pulse Resp BP Pulse Ox O2 Del Method 98.4 F 95 15 103/68 98 Room Air 09/02/22 09:55 09/02/22 09:55 09/02/22 09:55 09/02/22 09:55 09/02/22 09:55 09/02/22 09:55 Oxygen Delivery Method Room Air Weight: 124 lb 12.506 oz Body Mass Index (BMI) 22.1 Intake & Output: Intake and Output for Last 24 Hours 08/31/22 09/01/22 09/02/22 23:59 23:59 23:59 Intake Total 6996.67 / 6996.67 3575 / 4775 2249.75 / 2249.75 Output Total 1400 / 1400 Balance 5596.67 / 5596.67 3575 / 4775 2249.75 / 2249.75 Medical Nutrition Assessment Dietitian: Malnutrition Criteria Met Start: 08/31/22 15:52 Freq: Status: Active Protocol: Document 08/31/22 15:52 [facility] (Rec: 08/31/22 15:53 [facility] [id number]) Nutrition Malnutrition Evidence of Malnutrition Exists Yes Malnutrition (moderate): Chronic Evidenced By Suboptimal Energy Intake ( Moderate),Weight Loss (Severe) ,Physical Changes (Mild), Physical Changes (Moderate) Clinical Problem Chronic Disease or Condition Related Malnutrition Etiology related to physiological changes leading to decreased oral intakes Signs/Symptoms as evidenced by significant weight loss of 14.5%, or 21lb, within ~2.5 months, mild to moderate muscle and fat wasting per NFPA and pt reported decreased oral intakes < 75% of estimated nutrient needs for the past couple of months. Status Active Problem Recommendation Dietitian Recommendations/Changes Continue with Regular diet for liberalization as well as Ensure Compact 4x/day with medpass to help increase oral intakes in between meals. Will continue to follow the pt, and monitor oral intakes and weight changes, and make adjustments to interventions as needed. Lab / Micro Data Result Diagrams: 09/02/22 04:17 09/02/22 04:17 Labs: Laboratory Results - last 24 hr 08/30/22 21:10: Diff Path Review Reviewed 08/31/22 04:50: Diff Path Review Reviewed 08/31/22 08:40: Blood Type Cancelled, A1 Antigen Typing Cancelled, Rho(D) Type Cancelled, Antibody Screen NEGATIVE, Crossmatch See Detail 09/01/22 04:27: Diff Path Review Reviewed 09/02/22 04:17: WBC 0.8 L*, RBC 2.72 L, Hgb 8.1 L, Hct 23.9 L, MCV 87.9, MCH 29.8, MCHC 33.9, RDW Std Deviation 41.1, RDW Coeff of Jonas 12.8, Plt Count 16 L*, MPV 11.4, Immature Gran % (Auto) 0.000, Neut % (Auto) 52.5, Lymph % (Auto) 37.8, [place] % (Auto) 7.3, Eos % (Auto) 0.0, Baso % (Auto) 2.4 H, Absolute Neuts (auto) 0.4 L, Absolute Lymphs (auto) 0.31 L, Nucleated RBC % 0, Diff Path Review Reviewed, Platelet Estimate MKD 09/02/22 04:17: Sodium 140, Potassium 3.6, Chloride 111 H, Carbon Dioxide 25.0, Anion Gap 4 L, BUN 7, Creatinine 0.44 L, Estim Creat Clear Calc 126.53, Est GFR (MDRD) Af Amer 192, Est GFR (MDRD) Non-Af 159, BUN/Creatinine Ratio 15.7, Glucose 101, Calcium 8.2 L 09/02/22 04:17: Vancomycin Trough 8.2 Micro: Microbiology 09/01/22 14:15 Mucosa - Nose Respiratory Panel (PCR) - Final 08/30/22 21:30 Urine, Clean Catch Urine Culture - Final Coag Negative Staph 08/30/22 21:30 Nasal Secretion SARS-CoV-2 & FLU Antigen (Rapid) - Final Radiography Diagnostic Testing: Radiology Impression Abdomen/Pelvis CT 09/01/22 13:37 IMPRESSION: Trace bibasilar pleural effusions. Scattered ascites. Electronically Signed: Salvador Lucia MD at 16:46 EST , ADDENDUM: 09/01/221913 IMPRESSION: undefined Physical Exam Const alert, oriented x3 and no apparent distress HEENT head/scalp atraumatic, moist oral mucous membranes and oropharynx normal Head and Scalp: normocephalic Mouth: oral and palatal mucosa normal Eyes PERRL, EOMs intact bilaterally and conjunctivae normal Neck no lymphadenopathy and supple Resp normal respiratory effort, no retractions, no use of accessory muscles and clear to auscultation bilaterally Cardio regular rate, regular rhythm, S1 normal heart sound, S2 normal heart sound and no murmurs Cardio Narrative: tachycardic GI normal to inspection, nondistended, normoactive bowel sounds, soft to palpation and non-tender Extremity normal to inspection, full ROM and no clubbing, cyanosis or edema Neuro oriented x3, CN's II-XII intact bilaterally, moves all extremities and no focal motor deficits Sensorium / Orientation: awake and alert Motor Exam: strength 5/5 throughout Psych affect normal Assessment & Plan Assessment/Plan (1) Neutropenia with fever: PLAN: Plan #Neutropenic fever * has a history of uterine sarcoma, and had her first session of chemotherapy from August 20- at [facility] in [place] * feels better today. Fever has resolved this morning * wbc is up to 0.8, and absolute neutrophil count is 0.4. * urine cultures growing coagulase negative staph, below infection level * on IV cefepime and IV vancomycin. Blood cultures pending * dc IVV, as she has adequate oral intake now. * oncology and infectious disease consulted * #Pancytopenia * wbc is up to 0.8, with absolute neutrophil count of 0/4 * platelets are down to 16 today. * Hb is 8.1 after being transfused with 2 units of PRBCs * * #History of uterine sarcoma * She underwent chemotherapy at cancer treatment [facility] from August 20 to . * She has established care with Dr Segura at [facility] and tells me today she saw him recently at [facility]. * Oncology on board. 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 Stable * DVT prophylaxis: Lovenox CODE STATUS: Full code Charges/Coding Visit Charges Inpatient E&M: 15641 Subs Hosp L2
--- NOTE | 2022-09-02 11:58 | PCM.PN.ID ---
Physical Exam Narrative Feeling better, no fever, no abd pain. Noticed small nontender mass in outer labia; no redness or drainage Const alert and no apparent distress Resp normal air movement and clear to auscultation bilaterally Cardio regular rate and regular rhythm GI soft to palpation, non-tender and non-distended Skin no rashes or lesions noted ID ID: Route of nutrition/ use of supplements: [] Nutritional Intake: [] IV Site: [] Rowan Catheter: [] Assessment & Plan Assessment/Plan (1) Neutropenia with fever: PLAN: Fever resolved. Oncology following. Recent chemo. Neg resp viral pcr panel and CT abd/pelvis. Cont vanc/cefepime. Wbc improved today. Plan on stopping iv abx once ANC is stable over 1000 and resuming prior abx prophylaxis. Will follow
--- NOTE | 2022-09-02 13:26 | NURSING ---
I spoke with Elvia at [facility] transfer line informing her that per our jockey room custodian Jody we are cancelling our request for pt to be transferred to their hospital.
[2022-09-03] VITALS (10 sets, daily range): BP systolic 93–100; BP diastolic 59–66; PULSE 84–97; RESP 15–18; TEMP 36.6–37; O2SAT 95–100
[2022-09-03 06:07] LABS: Hematocrit 23.3 % (37-47); Hemoglobin 8.1 g/dL (12.0-15.0); Mean Corp Hgb Conc 34.8 g/dL (32-36); Mean Corpuscular Hgb 30.5 pg (27.0-32.0); Mean Corpuscular Volume 87.6 fL (81-99); Mean Platelet Vol. 10.9 fl (6.2-12.0); POSITIVE COUNT YES; POSITIVE DIFFERENTIAL YES; POSITIVE MORPHOLOGY YES; Platelet Count 36 K/mm3 (150-450); RBC Distribution Width CV 12.7 % (11.6-14.6); RBC Distribution Width SD 40.5 fl (35.1-43.9); Red Blood Count 2.66 M/mm3 (4.2-5.4); White Blood Count 2.1 K/mm3 (4.4-11.0)
[2022-09-03 06:10] LABS: Differential Indicated MANUAL DIFF
[2022-09-03 06:29] LABS: Platelet Estimate MKD DEC (ADEQ)
[2022-09-03 06:34] LABS: Absolute Lymphocyte Count 0.48 X10^3/uL (0.83-4.51); Absolute Neutrophil Count 1.3 X10^3/uL (2.0-7.7); Anion Gap 5 (5-15); BUN 7 mg/dL (7-18); BUN/Creat Ratio 16.9 RATIO (10-20); Calcium,Total 8.4 mg/dL (8.5-10.1); Chloride 110 mmol/L (98-107); Creatinine, Serum 0.41 mg/dL (0.55-1.02); EST Glomerular Filtration Rate 173 mL/min (>60); Est Glom Filt Rate - Afr Amer 209 mL/min (>60); Estimated Creatinine Clearance 135.79 ml/min; Glucose 95 mg/dL (74-106); Metamyelocyte 1 % (0-1); Myelocyte 3 % (0-0); Neutrophil-Band 17 % (0-5); Neutrophil-Segmented 46 % (47-70); Potassium 3.3 mmol/L (3.5-5.1); Promyelocyte 1 % (0-0); Sodium Level 141 mmol/L (136-145); Total Cells Counted 100 (MANUAL DIFF)
[2022-09-03 06:35] LABS: Atypical Lymphocyte 1+ %; Lymphocyte 23 % (19-41); Monocyte 9 % (0-10); Red Cell Morphology NORM C+C NORMAL (NORM C&C)
[2022-09-03] MEDS: SOD PHOS DI, MONO/K PHOS MONO 250 MG TABLET 500 MG PO (08:54)
[2022-09-03] MEDS: Potassium Chloride Oral Tablet 20 MEQ PO (08:54)
[2022-09-03] MEDS: Potassium Chloride Oral Tablet 20 MEQ 40 MEQ PO (08:54)
--- NOTE | 2022-09-03 10:19 | DS.PCM_ITS ---
Providers Date of Admission: 08/30/22 Primary Care Physician: Dr. Srikanth Dominguez MD Consultations 08/31/22 15:02 Consult: Oncology/Hematology Routine Consulting Provider: [facility] Hem/Onc Teagan Reason for Consult: neutropenic fever EMERGENT Consult: No Notified: Yes Date Notified: 08/31/22 Time Notified: 15:02 Method of Notification: Verbal 08/31/22 15:03 Consult: Infectious Disease Routine Consulting Provider: Bobby Hyde Reason for Consult: neutropenic fever EMERGENT Consult: No Notified: Yes Date Notified: 08/31/22 Time Notified: 08:04 Method of Notification: Text Reason For Visit: NEUTROPENIC FEVER Diagnosis Discharge Diagnosis (1) Neutropenia with fever: Status: Acute Code(s): D70.9 - Neutropenia, unspecified; R50.81 - Fever presenting with conditions classified elsewhere Plan #Neutropenic fever * has a history of uterine sarcoma, and had her first session of chemotherapy from August 20- at [facility] in [place] * feels better today. Fever has resolved this morning * wbc is up to 0.8, and absolute neutrophil count is 0.4. * urine cultures growing coagulase negative staph, below infection level * on IV cefepime and IV vancomycin. Blood cultures pending * dc IVV, as she has adequate oral intake now. * oncology and infectious disease consulted * #Pancytopenia * wbc is up to 0.8, with absolute neutrophil count of 0/4 * platelets are down to 16 today. * Hb is 8.1 after being transfused with 2 units of PRBCs * * #History of uterine sarcoma * She underwent chemotherapy at cancer treatment [facility] from Aug to . * She has established care with Dr Segura at [facility] and tells me today she saw him recently at [facility]. * Oncology on board. 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 Stable * DVT prophylaxis: Lovenox CODE STATUS: Full code Medications at Discharge Home Medications ondansetron 8 mg disintegrating tablet 8 mg PO Q8H PRN PRN Nausea 08/31/22 potassium chloride 10 mEq capsule,extended release 20 meq PO DAILY supplement 08/31/22 prochlorperazine maleate 10 mg tablet 10 mg PO Q6H PRN PRN Nausea 08/31/22 sennosides 8.6 mg-docusate sodium 50 mg tablet (Senexon-S) 2 tab PO BID bowels 08/31/22 sodium di- and monophosphate-potassium phos monobasic 250 mg tablet (K-Phos-Neut ral) 2 tab PO DAILY supplement 08/31/22 Medical Records Data Medical Nutrition Assessment Dietitian: Malnutrition Criteria Met Start: 08/31/22 15:52 Freq: Status: Active Protocol: Document 08/31/22 15:52 [facility] (Rec: 08/31/22 15:53 [facility] [id number]) Nutrition Malnutrition Evidence of Malnutrition Exists Yes Malnutrition (moderate): Chronic Evidenced By Suboptimal Energy Intake ( Moderate),Weight Loss (Severe) ,Physical Changes (Mild), Physical Changes (Moderate) Clinical Problem Chronic Disease or Condition Related Malnutrition Etiology related to physiological changes leading to decreased oral intakes Signs/Symptoms as evidenced by significant weight loss of 14.5%, or 21lb, within ~2.5 months, mild to moderate muscle and fat wasting per NFPA and pt reported decreased oral intakes < 75% of estimated nutrient needs for the past couple of months. Status Active Problem Recommendation Dietitian Recommendations/Changes Continue with Regular diet for liberalization as well as Ensure Compact 4x/day with medpass to help increase oral intakes in between meals. Will continue to follow the pt, and monitor oral intakes and weight changes, and make adjustments to interventions as needed. Weight / BMI Weight Weight: 124 lb 12.506 oz Body Mass Index (BMI) 22.1 ABG / Lab / Microbiology Data Result Diagrams: 09/03/22 05:38 09/03/22 05:38 Laboratory: Laboratory Results - last 24 hr 09/02/22 04:17: Diff Path Review Reviewed 09/03/22 05:38: WBC 2.1 L, RBC 2.66 L, Hgb 8.1 L, Hct 23.3 L, MCV 87.6, MCH 30.5, MCHC 34.8, RDW Std Deviation 40.5, RDW Coeff of Jonas 12.7, Plt Count 36 L*, MPV 10.9, Neut % (Auto) Not Reportable, Absolute Neuts (auto) 1.3 L, Absolute Lymphs (auto) 0.48 L, Total Counted 100, Neutrophils % (Manual) 46 L, Band Neutrophils % 17 H, Lymphocytes % (Manual) 23, Monocytes % (Manual) 9, Metamyelocytes % 1, Myelocytes % 3 H, Promyelocytes % 1 H, Diff Path Review May foll, Atypical Lymphocytes 1+, Platelet Estimate MKD DEC, RBC Morphology NORM C+C 09/03/22 05:38: Sodium 141, Potassium 3.3 L, Chloride 110 H, Carbon Dioxide 26.0, Anion Gap 5, BUN 7, Creatinine 0.41 L, Estim Creat Clear Calc 135.79, Est GFR (MDRD) Af Amer 209, Est GFR (MDRD) Non-Af 173, BUN/Creatinine Ratio 16.9, Glucose 95, Calcium 8.4 L Microbiology: Microbiology 08/31/22 09:00 Blood Culture (Wb) - Port Blood Culture - Preliminary No growth in 48 hours. 08/31/22 08:40 Blood Culture (Wb) - Anticubital Right Blood Culture - Preliminary No growth in 48 hours. 08/30/22 21:10 Blood Culture (Wb) - Pic Blood Culture - Preliminary No growth in 48 hours. 09/01/22 14:15 Mucosa - Nose Respiratory Panel (PCR) - Final 08/30/22 21:30 Urine, Clean Catch Urine Culture - Final Coag Negative Staph 08/30/22 21:30 Nasal Secretion SARS-CoV-2 & FLU Antigen (Rapid) - Final Discharge Plan Admission Admit Date/Time: 08/30/22 23:17 Primary Reason for Your Visit: neutropenic fever Attending Provider: Megan Vieyra Primary Care Provider: Srikanth Dominguez Consulting Providers: Jethro Vazquez ; David Carey ; Kiah Marsh ; Kaylah Tan ; Umang Sandoval ; Kingston Mcarthur ; Bobby Hyde Instructions Patient Instructions: Neutropenia Additional Instructions / Restrictions: follow up with your oncologist in [place] as planned later this week Discharge Orders/Prescriptions Prescriptions: Continued potassium chloride 10 mEq Capsule, Extended Release 20 meq PO DAILY sennosides-docusate sodium [Senexon-S] 8.6-50 mg tablet 2 tab PO BID prochlorperazine maleate 10 mg tablet 10 mg PO Q6H PRN PRN (Reason: Nausea) ondansetron 8 mg Tablet,Disintegrating 8 mg PO Q8H PRN PRN (Reason: Nausea) Q-Xclg-Becwwee 250 mg tablet 2 tab PO DAILY Referrals / Follow Up: Srikanth Dominguez MD [Primary Care Provider] - Within 2 Weeks Disposition Disposition (needs filled in before D/C Order can be placed): Home, Self Care
--- NOTE | 2022-09-03 10:19 | PCM.DC ---
Discharge Instructions Diet Discharge Diet: Low fat / Low cholesterol Activity Discharge Activity: Return to Normal Activity Weight Bearing Status: Weight bearing as tolerated Dressing / Incision Call your doctor if you observe: Fever of 101 or Higher, Shortness of breath, Dizziness, Swelling in the ankles, Chest pain and Increased palpitations (irregular heartbeat) Follow Up Care Test Results: Test results from this visit will be discussed in further detail at your follow-up appointment, if applicable. Discharge Plan Admission Admit Date/Time: 08/30/22 23:17 Primary Reason for Your Visit: neutropenic fever Attending Provider: Megan Vieyra Primary Care Provider: Srikanth Dominguez Consulting Providers: Jethro Vazquez ; David Carey ; Kiah Marsh ; Kaylah Tan ; Umang Sanodval ; Kingston Mcarthur ; Bobby Hyde Instructions Patient Instructions: Neutropenia Additional Instructions / Restrictions: follow up with your oncologist in [place] as planned later this week Discharge Orders/Prescriptions Prescriptions: Continued potassium chloride 10 mEq Capsule, Extended Release 20 meq PO DAILY sennosides-docusate sodium [Senexon-S] 8.6-50 mg tablet 2 tab PO BID prochlorperazine maleate 10 mg tablet 10 mg PO Q6H PRN PRN (Reason: Nausea) ondansetron 8 mg Tablet,Disintegrating 8 mg PO Q8H PRN PRN (Reason: Nausea) J-Tqfl-Xoiuhyp 250 mg tablet 2 tab PO DAILY Referrals / Follow Up: Srikanth Dominguez MD [Primary Care Provider] - Within 2 Weeks Disposition Disposition (needs filled in before D/C Order can be placed): Home, Self Care
--- NOTE | 2022-09-03 11:14 | CASEMGMT ---
Pt has been independent in room and states no concerns with going home at discharge. Shelby DOMINGUEZ CM
--- NOTE | 2022-09-03 12:12 | CHAPLAIN ---
Type of Pastoral Visit ___ Initial Visit _x__ Follow-up Visit ___ On-call Visit ___ General Patient Visit ___ Spiritual Assessment ___ Family Conference ___ Bereavement ___ Rapid Response ___ Code Blue ___ Other (describe below) Pastoral Care Referral From _x__ Patient ___ Family ___ Nurse ___ Physician ___ Diesel Engine Operator ___ Weather Algorithm Scientist ___ Other (describe below) Sacrament/Intervention _x__ Active listening ___ Anointing ___ Temple ___ Bereavement ___ Communion ___ Alondra exploration ___ ___ Life review _x__ Prayer ___ Reconciliation ___ Sacrament of Sick ___ Supportive presence ___ Wedding ___ Other (describe below) Pastoral Comments patient is sitting up at bedside and smiling; pt states that she is to be discharged soon and will be heading back to [place] tomorrow for more treatments; pt expresses gratitude for the spiritual care support and this follow up visit; pt states that prayers are being answered; pt requests further prayers for travels and for the family members that will remain home in [place];
[2022-09-03 12:22] LABS: Pathologist Review Reviewed
[2022-09-03 12:59] LABS: Vancomycin, Trough Level 21.4 ug/mL (5.0-15.0)
--- NOTE | 2022-09-03 15:22 | DS.PCM_ITS ---
Providers Date of Admission: 08/30/22 Date of Discharge: 09/03/22 Primary Care Physician: Dr. Srikanth Dominguez MD Consultations 08/31/22 15:02 Consult: Oncology/Hematology Routine Consulting Provider: [facility] Hem/Onc Teagan Reason for Consult: neutropenic fever EMERGENT Consult: No Notified: Yes Date Notified: 08/31/22 Time Notified: 15:02 Method of Notification: Verbal 08/31/22 15:03 Consult: Infectious Disease Routine Consulting Provider: Bobby Hyde Reason for Consult: neutropenic fever EMERGENT Consult: No Notified: Yes Date Notified: 08/31/22 Time Notified: 08:04 Method of Notification: Text Reason For Visit: NEUTROPENIC FEVER Diagnosis Discharge Diagnosis (1) Neutropenia with fever: Status: Acute Code(s): D70.9 - Neutropenia, unspecified; R50.81 - Fever presenting with conditions classified elsewhere Plan #Neutropenic fever * has a history of uterine sarcoma, and had her first session of chemotherapy from August 20- at [facility] in [place] * feels better today. Fever has resolved this morning * wbc is up to 0.8, and absolute neutrophil count is 0.4. * urine cultures growing coagulase negative staph, below infection level * on IV cefepime and IV vancomycin. Blood cultures pending * dc IVV, as she has adequate oral intake now. * oncology and infectious disease consulted * #Pancytopenia * wbc is up to 0.8, with absolute neutrophil count of 0/4 * platelets are down to 16 today. * Hb is 8.1 after being transfused with 2 units of PRBCs * * #History of uterine sarcoma * She underwent chemotherapy at cancer treatment [facility] from August 20 to . * She has established care with Dr Segura at [facility] and tells me today she saw him recently at [facility]. * Oncology on board. 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 Stable * DVT prophylaxis: Lovenox CODE STATUS: Full code Medications at Discharge Home Medications ondansetron 8 mg disintegrating tablet 8 mg PO Q8H PRN PRN Nausea 08/31/22 potassium chloride 10 mEq capsule,extended release 20 meq PO DAILY supplement 08/31/22 prochlorperazine maleate 10 mg tablet 10 mg PO Q6H PRN PRN Nausea 08/31/22 sennosides 8.6 mg-docusate sodium 50 mg tablet (Senexon-S) 2 tab PO BID bowels 08/31/22 sodium di- and monophosphate-potassium phos monobasic 250 mg tablet (K-Piwb-Tggbhus) 2 tab PO DAILY supplement 08/31/22 Hospital Course Operations None Procedures None Summary of Care Provided Minutes Spent on Discharge: 47 Hospital Course: Patient is a 52-year-old female with a past medical history of uterine sarcoma status post hysterectomy and chemotherapy as well as a past history of colon cancer. Patient was following up with oncology at [facility] [place] in [place] and had had chemotherapy from August 20 to . On return to [place], subsequently noticed that she was febrile and had a temperature of 100 Fahrenheit. She also had persistent fatigue so she came into the ED. Patient had establish care with a sarcoma expert to Dr. Segura at [facility] and had seen him once. On admission she was found to be neutropenic with absolute neutrophil cou nt of 0. Chest x-ray showed no acute cardiopulmonary process and urinalysis also showed no evidence of infection. She was admitted and managed for neutropenic fever. She was started on broad-spectrum antibiotics with IV vancomycin and Zosyn. she was also anemic and thrombocytopenic. Hospital co urse was complicated by further drop in her hemoglobin and platelets. Oncology was consulted as well as ID. She was transfused with 2 units of platelets and also transfused with 2 units of packed red blood cells. She was also hypotensive but responded to IV fluids. She was started on subcu Granix on account of severe neutropenia and leukopenia. Blood cultures were negative. His symptoms subsequently resolved and she felt much better. Urine culture grew coagulase-negative staph but a very low yield was below infection level. She was discharged home on 09/03/2022. Patient said she is going to go back to [place] to follow-up with her oncologist and to complete chemotherapy there. Patient seen and examined prior to discharge. She had no active complaints and had an uneventful night. She felt well and review of systems otherwise negative. Labs and vitals reviewed. Her white cell count did come up to 2.1 and her absolute neutrophil count was up to 1.2. Platelets were 36 and hemo globin was 8.1. Home medication reviewed and reconciled. Physical Exam Const alert, oriented x3 and no apparent distress General Appearance: cooperative, comfortable and well kempt Orientation / Consciousness: awake Exam Limitations: no limitations HEENT normocephalic, head/scalp atraumatic, hearing grossly normal bilaterally, moist oral mucous membranes and oropharynx normal Eyes PERRL, EOMs intact bilaterally and conjunctivae normal Neck no lymphadenopathy and supple Resp normal respiratory effort, no retractions, no use of accessory muscles and clear to auscultation bilaterally Cardio regular rate, regular rhythm, S1 normal heart sound, S2 normal heart sound and no murmurs GI normal to inspection, nondistended, normoactive bowel sounds, soft to palpation and non-tender Extremity normal to inspection, full ROM and no clubbing, cyanosis or edema Skin no rashes or lesions noted Neuro oriented x3, CN's II-XII intact bilaterally, moves all extremities and no focal motor deficits Sensorium / Orientation: awake and alert Motor Exam: strength 5/5 throughout Psych affect normal Medical Records Data Medical Nutrition Assessment Dietitian: Malnutrition Criteria Met Start: 08/31/22 15:52 Freq: Status: Active Protocol: Document 08/31/22 15:52 [facility] (Rec: 08/31/22 15:53 [facility] [id number]) Nutrition Malnutrition Evidence of Malnutrition Exists Yes Malnutrition (moderate): Chronic Evidenced By Suboptimal Energy Intake ( Moderate),Weight Loss (Severe) ,Physical Changes (Mild), Physical Changes (Moderate) Clinical Problem Chronic Disease or Condition Related Malnutrition Etiology related to physiological changes leading to decreased oral intakes Signs/Symptoms as evidenced by significant weight loss of 14.5%, or 21lb, within ~2.5 months, mild to moderate muscle and fat wasting per NFPA and pt reported decreased oral intakes < 75% of estimated nutrient needs for the past couple of months. Status Active Problem Recommendation Dietitian Recommendations/Changes Continue with Regular diet for liberalization as well as Ensure Compact 4x/day with medpass to help increase oral intakes in between meals. Will continue to follow the pt, and monitor oral intakes and weight changes, and make adjustments to interventions as needed. Weight / BMI Weight Weight: 124 lb 12.506 oz Body Mass Index (BMI) 22.1 ABG / Lab / Microbiology Data Result Diagrams: 09/03/22 05:38 09/03/22 05:38 Laboratory: Laboratory Results - last 24 hr 09/03/22 05:38: WBC 2.1 L, RBC 2.66 L, Hgb 8.1 L, Hct 23.3 L, MCV 87.6, MCH 30.5, MCHC 34.8, RDW Std Deviation 40.5, RDW Coeff of Jonas 12.7, Plt Count 36 L*, MPV 10.9, Neut % (Auto) Not Reportable, Absolute Neuts (auto) 1.3 L, Absolute Lymphs (auto) 0.48 L, Total Counted 100, Neutrophils % (Manual) 46 L, Band Neutrophils % 17 H, Lymphocytes % (Manual) 23, Monocytes % (Manual) 9, Metamyelocytes % 1, Myelocytes % 3 H, Promyelocytes % 1 H, Diff Path Review Reviewed, Atypical Lymphocytes 1+, Platelet Estimate MKD DEC, RBC Morphology NORM C+C 09/03/22 05:38: Sodium 141, Potassium 3.3 L, Chloride 110 H, Carbon Dioxide 26.0, Anion Gap 5, BUN 7, Creatinine 0.41 L, Estim Creat Clear Calc 135.79, Est GFR (MDRD) Af Amer 209, Est GFR (MDRD) Non-Af 173, BUN/Creatinine Ratio 16.9, Glucose 95, Calcium 8.4 L 09/03/22 12:14: Vancomycin Trough 21.4 H Microbiology: Microbiology 08/31/22 09:00 Blood Culture (Wb) - Port Blood Culture - Preliminary No growth in 48 hours. 08/31/22 08:40 Blood Culture (Wb) - Anticubital Right Blood Culture - Preliminary No growth in 48 hours. 08/30/22 21:10 Blood Culture (Wb) - Pic Blood Culture - Preliminary No growth in 48 hours. 09/01/22 14:15 Mucosa - Nose Respiratory Panel (PCR) - Final 08/30/22 21:30 Urine, Clean Catch Urine Culture - Final Coag Negative Staph 08/30/22 21:30 Nasal Secretion SARS-CoV-2 & FLU Antigen (Rapid) - Final D/C Instructions Discharge Diet: Low fat / Low cholesterol Weight Bearing Status: Weight bearing as tolerated Call your doctor if you observe: Fever of 101 or Higher, Shortness of breath, Dizziness, Swelling in the ankles, Chest pain and Increased palpitations (irre gular heartbeat) Meaningful Use Info Meaningful Use Diagnoses (Choose all that apply): None applicable Discharge Plan Admission Admit Date/Time: 08/30/22 23:17 Primary Reason for Your Visit: neutropenic fever Attending Provider: Megan Vieyra Primary Care Provider: Srikanth Dominguez Consulting Providers: Jethro Vazquez ; David Carey ; Kiah Marsh ; Kaylah Tan ; Umang Sandoval ; Kingston Mcarthur ; Bobby Hyde Instructions Patient Instructions: Neutropenia Additional Instructions / Restrictions: follow up with your oncologist in [place] as planned later this week Discharge Orders/Prescriptions Prescriptions: Continued potassium chloride 10 mEq Capsule, Extended Release 20 meq PO DAILY sennosides-docusate sodium [Senexon-S] 8.6-50 mg tablet 2 tab PO BID prochlorperazine maleate 10 mg tablet 10 mg PO Q6H PRN PRN (Reason: Nausea) ondansetron 8 mg Tablet,Disintegrating 8 mg PO Q8H PRN PRN (Reason: Nausea) D-Szmw-Wcknpah 250 mg tablet 2 tab PO DAILY Referrals / Follow Up: Srikanth Dominguez MD [Primary Care Provider] - Within 2 Weeks Disposition Disposition (needs filled in before D/C Order can be placed): Home, Self Care Charges/Coding Visit Charges Inpatient E&M: 84808 Disch Hosp
== END 2022-09-03 15:56 | disposition home or self-care (01) | DRG 809 ==
LOC: ED 22:31 → MS3 23:50 → PCU 08-31 08:20
PROVIDERS: Family Medicine; Admitting Provider Hospitalist; Emergency Provider Emergency Medicine; PCP Family Medicine; Visit Provider Student in an Organized Health Care Education/Training Program
DX: D70.9 Neutropenia, unspecified (principal); C49.9 Malignant neoplasm of connective and soft tissue, unspecified; E44.0 Moderate protein-calorie malnutrition; D61.810 Antineoplastic chemotherapy induced pancytopenia; D61.818 Other pancytopenia; Z87.891 Personal history of nicotine dependence; R50.81 Fever presenting with conditions classified elsewhere; Z92.21 Personal history of antineoplastic chemotherapy; Z85.3 Personal history of malignant neoplasm of breast; Z79.899 Other long term (current) drug therapy; Z68.22 Body mass index [BMI] 22.0-22.9, adult
CPT/HCPCS: 36415; 71046; 74177; 80048; 80053; 80202; 81001; 83605; 85025; 85610; 85730; 86850; 86900; 86901; 86920; 86922; 86965; 87040; 87086; 87088; 87428; 87633; 97802; 99284; J7030; J7040; J7050; P9016; P9035; Q9967; A4216; J1447

== ENCOUNTER 2023-01-08 16:33 | Emergency (ER) | payer BC, SELFPAY ==
[2023-01-08 16:34] VITALS: PULSE 122; RESP 16; TEMP 37.4; O2SAT 98; BMI 23.3
[2023-01-08 16:45] VITALS: PULSE 118
--- NOTE | 2023-01-08 17:07 | EDS_ITS ---
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 She is following with oncology here. For the last couple weeks, she has been having abdominal pain in her right side of her surgical incision, and urinary frequency. She had a urinalysis that was normal according to her, she was referred to urology which she has not seen yet. For the past week or 2 she has also been having paresthesias in the left hand and the left foot without any weakness, she has also developed some pain in the left buttock. She is really worried about recurrence of her cancer since it was high-grade and has a high risk of recurrence. She has never had a head scan, she has had scans of her chest and abdomen but they were done at [facility] in November. She denies any speech problems or other neurologic symptoms. [facility] Medical History Acquired immunocompromised state Anxiety Cancer Former smoker History of pain when walking History of sarcoma Shortness of breath on exertion Wears glasses Home Medications ondansetron 8 mg disintegrating tablet 8 mg PO Q8H PRN PRN Nausea 08/31/22 [History Last Taken 08/30/22 17:00] potassium chloride 10 mEq capsule,extended release 20 meq PO DAILY supplement 08/31/22 [History Last Taken 08/30/22 11:00] prochlorperazine maleate 10 mg tablet 10 mg PO Q6H PRN PRN Nausea 08/31/22 [History Last Taken Unknown] sennosides 8.6 mg-docusate sodium 50 mg tablet (Senexon-S) 2 tab PO BID bowels 08/31/22 [History Last Taken 08/30/22 11:00] sodium di- and monophosphate-potassium phos monobasic 250 mg tablet (Q-Flac-Mcgfbnn) 2 tab PO DAILY supplement 08/31/22 [History Last Taken 08/30/22 11:00] Allergy/AdvReac Type Severity Reaction Status Date / Time No Known Allergies Allergy Verified 01/08/23 16:39 Family History Other Cancer Surgical History H/O: hysterectomy History of hysterectomy for cancer Hx of clubfoot correction Hx of hernia repair Hx of right mastectomy Social History Smoking Status: Former smoker ROS ROS ED Constitutional Constitutional ED: Denies chills or fever(s) Eyes Eyes: Denies change in vision or diplopia ENT ENT ED: Denies rhinorrhea or sore throat Cardiovascular Cardiovascular: Denies chest pain or palpitations Respiratory/Chest Respiratory/Chest: Denies cough or dyspnea Gastrointestinal Gastrointestinal: Reports abdominal pain; Denies diarrhea, nausea or vomiting Genitourinary Genitourinary ED: Denies dysuria or hematuria Musculoskeletal Musculoskeletal: Reports extremity pain; Denies back pain, difficulty walking or neck pain Integumentary Denies abscess or rash Neurologic Neurologic: Reports headache(s) and paresthesias; Denies weakness Psychiatric Psychiatric: Denies anxiety or suicidal thoughts EXAM Physical Exam Const Vital Signs: 01/08/23 16:34 01/08/23 16:45 01/08/23 16:46 Temperature 99.4 F H Temperature Source Temporal Pulse Rate 122 H 118 H Respiratory Rate 16 Respiratory Effort Normal Respiratory Pattern Normal Blood Pressure Blood Pressure Mean Pulse Ox 98 Oxygen Delivery Method Room Air 01/08/23 18:46 Temperature Temperature Source Pulse Rate 90 Respiratory Rate 16 Respiratory Effort Respiratory Pattern Blood Pressure 106/75 Blood Pressure Mean 85 Pulse Ox 100 Oxygen Delivery Method Room Air Positive well nourished and well developed General Appearance ED: well developed and NAD HEENT Reports moist mucous membranes normocephalic and atraumatic Eyes PERRL and EOMs intact bilaterally Neck full ROM, no lymphadenopathy and supple Resp normal respiratory effort and clear to auscultation bilaterally Cardio regular rate, regular rhythm and no murmurs GI non-distended GI Narrative: Mild tenderness in the right lower quadrant at subcutaneous abdominal wall scar tissue that is palpable. Examined while standing, it is a little more prominent but no hernia bulge. No guarding or rebound. No palpable intra-abdominal masses. No distention. Lower transverse abdominal surgical incision is well- healed and without any erythema or dehiscence or signs of infection. Auscultation: normoactive bowel sounds Palpation: soft Back/Spine no CVA tenderness General Back: other FROM Extremity normal to inspection Extremity Narrative: Negative straight leg raises bilateral lower extremities, over 45 degrees. All compartments both lower extremities soft and nondistended, no significant tenderness in the left thigh. General Extremety ED: Negative for edema, pulses abnormal or tenderness General Extremity: Negative for edema or pulses abnormal Neuro oriented x3 and CN's II-XII intact bilaterally Neuro Narrative: With challenge bilaterally to sharp sensation, she has some mild asymmetry intermittently in the left foot compared with the right, but both hands and otherwise normal/symmetric. Normal symmetric strength, normal gait. Sensorium / Orientation: awake and alert Motor Exam: strength 5/5 throughout Psych mental status grossly normal Skin no rashes or lesions noted and no wounds MDM MDM MDM Narrative Medical decision making narrative: Patient concerned about metastatic disease. I examined her while standing there is no hernia in her right lower quadrant, my concern is that this is probably more likely to be scar tissue from her incision. However given her other symptoms and performing CT with and without contrast of the head, I thought it was reasonable to include the abdomen/pelvis which we did. I reviewed the CTs, I do not see any signs of masses, radiology read them as all negative, I agree with his interpretation. Urinalysis negative for any infection. Reviewed I discussed her blood counts with her. Leukopenia but no neutropenia. Close outpatient follow-up advised, neuropathy in the differential diagnosis of much of a chemotherapeutic agent she had but some of them can cause this, but there is no evidence of metastatic disease or an acute stroke at this time. Lab Data Attestation: I reviewed the patient's lab results. Labs: Laboratory Results - last 24 hr 01/08/23 01/08/23 01/08/23 17:25 17:25 17:50 WBC 3.1 L RBC 3.80 L Hgb 13.1 Hct 38.2 MCV 100.5 H MCH 34.5 H MCHC 34.3 RDW Std Deviation 52.4 H RDW Coeff of Jonas 14.2 Plt Count 152 MPV 8.8 Immature Gran % (Auto) 0.700 Neut % (Auto) 57.3 Lymph % (Auto) 23.3 Nolan % (Auto) 17.4 H Eos % (Auto) 1.0 Baso % (Auto) 0.3 Absolute Neuts (auto) 1.8 L Absolute Lymphs (auto) 0.71 L Nucleated RBC % 0 Sodium 135 L Potassium 3.5 Chloride 103 Carbon Dioxide 28.0 Anion Gap 4 L BUN 11 Creatinine 0.83 Estim Creat Clear Calc 67.08 Est GFR (MDRD) Af Amer 94 Est GFR (MDRD) Non-Af 77 BUN/Creatinine Ratio 13.3 Glucose 102 Calcium 9.4 Urine Color Yellow Urine Clarity Clear Urine pH 7.0 Ur Specific [place] 1.010 Urine Protein Negative Urine Glucose (UA) Normal Urine Ketones Negative Urine Occult Blood 10 H Urine Nitrite Negative Urine Bilirubin Negative Urine Urobilinogen Normal Ur Leukocyte Esterase 25 H Urine RBC 0 SEEN Urine WBC 0 SEEN Ur Squamous Epith Cells 0 SEEN Urine Bacteria 0 SEEN Urine Mucus 0 SEEN Radiography Diagnostic Testing: Clinical Impression(s) from Imaging Studies Abdomen/Pelvis CT 01/08/23 18:30 IMPRESSION: 1. Normal appendix. 2. No evidence of local recurrence or metastatic disease. 3. Increased colonic feces. Question constipation. 4. Resolution of the trace ascites and pleural effusion seen on the previous examination. Electronically Signed: Evaristo Dowling DO at 18:49 EDT Reading Location ID and State: [address] [place] [address] Tel [phone], Service support , Brain CT 01/08/23 18:30 IMPRESSION: Normal unenhanced and enhanced CT scan of the brain. A[employer]OC was utilized to assist in identifying pertinent positive findings in this case. Electronically Signed: Evaristo Dowling DO at 18:51 EDT Reading Location ID and State: [facility] / [place] Tel [phone], Service support , Discharge Plan Triage Chief Complaint: General Illness ED Provider: Ti Garcia Dx/Rx/DC Orders Clinical Impression: Paresthesias, Abdominal wall pain in right lower quadrant Instructions: ED Paraesthesias Prescriptions: No Action potassium chloride 10 mEq Capsule, Extended Release 20 meq PO DAILY sennosides-docusate sodium [Senexon-S] 8.6-50 mg tablet 2 tab PO BID prochlorperazine maleate 10 mg tablet 10 mg PO Q6H PRN PRN (Reason: Nausea) ondansetron 8 mg Tablet,Disintegrating 8 mg PO Q8H PRN PRN (Reason: Nausea) E-Krch-Ugdkysl 250 mg tablet 2 tab PO DAILY Primary Care Provider: Srikanth Dominguez Referrals: Srikanth Dominguez MD [Primary Care Provider] - (And/or your oncologist) Disposition Disposition: Home, Self Care
[2023-01-08 17:43] LABS: Absolute Lymphocyte Count 0.71 X10^3/uL (0.83-4.51); Absolute Neutrophil Count 1.8 X10^3/uL (2.0-7.7); Basophil# 0.01 X10^3/uL; Basophil% 0.3 % (0-1); Eosinophil# 0.03 X10^3/uL; Hematocrit 38.2 % (37-47); Hemoglobin 13.1 g/dL (12.0-15.0); Lymphocyte # 0.71 X10^3/ul (0.83-4.51); Lymphocyte % 23.3 % (19-41); Mean Corp Hgb Conc 34.3 g/dL (32-36); Mean Corpuscular Hgb 34.5 pg (27.0-32.0); Mean Corpuscular Volume 100.5 fL (81-99); Mean Platelet Vol. 8.8 fl (6.2-12.0); Monocyte# 0.53 X10^3/uL; Monocyte% 17.4 % (0-10); NRBC Flagged by Analyzer 0 % (0-5); Neutrophil # 1.75 X10^3/uL (2.7-7.7); Neutrophil % 57.3 % (47-70); Platelet Count 152 K/mm3 (150-450); RBC Distribution Width CV 14.2 % (11.6-14.6); RBC Distribution Width SD 52.4 fl (35.1-43.9); White Blood Count 3.1 K/mm3 (4.4-11.0)
[2023-01-08 17:58] LABS: Anion Gap 4 (5-15); BUN 11 mg/dL (7-18); BUN/Creat Ratio 13.3 RATIO (10-20); Calcium,Total 9.4 mg/dL (8.5-10.1); Chloride 103 mmol/L (98-107); Creatinine, Serum 0.83 mg/dL (0.55-1.02); EST Glomerular Filtration Rate 77 mL/min (>60); Est Glom Filt Rate - Afr Amer 94 mL/min (>60); Estimated Creatinine Clearance 67.08 ml/min; Glucose 102 mg/dL (74-106); Potassium 3.5 mmol/L (3.5-5.1); Sodium Level 135 mmol/L (136-145)
[2023-01-08 18:04] LABS: Bacteria 0 SEEN /hpf (None Seen); Mucous, Urine 0 SEEN /hpf (<or=2+); Red Blood Cells-Urine 0 SEEN /hpf (0-5); Squamous Epithelial Cells - UA 0 SEEN /hpf (5-10); White Blood Cells 0 SEEN /hpf (0-5)
[2023-01-08 18:15] LABS: Color, Urine Yellow (Yellow); Glucose, Dipstick Normal (Normal); Ketone-Dipstick Negative (Negative); Leukocyte Esterase-Dipstick 25 /ul (Negative); Nitrite-Dipstick Negative (Negative); Occult Blood-Urine 10 /ul (Negative); Protein-Dipstick Negative (Negative); Urine Bilirubin Dipstick Negative (Negative); Urine Clarity Clear (Clear); Urine Urobilinogen Normal (Normal)
--- NOTE | 2023-01-08 18:30 | CT_ITS ---
STUDY: CT ABDOMEN AND PELVIS WITH CONTRAST REASON FOR EXAM: Female, 52 years old. Right lower quadrant pain. History of uterine cancer with hysterectomy. RADIATION DOSAGE (If Supplied By Facility): CTDIvol = ( 12.47 ) mGy, DLP = ( 606.74 ) mGycm TECHNIQUE: Transaxial images were obtained from the dome of the diaphragm to the symphysis pubis without oral contrast. 100ML OF ISOVUE 370 was administered. Sagittal and coronal images were reconstructed. Individualized dose optimization techniques were used for this CT. COMPARISON: September 01, 2022. FINDINGS: The visualized lung bases are unremarkable. The visualized portions of the heart are within normal limits. Normal liver. Normal gallbladder and extrahepatic biliary system. Normal spleen. Normal pancreas. Normal bilateral adrenal glands. Normal right kidney. Normal left kidney. Normal visualized stomach. Fluid-filled nondistended small bowel loops with normal wall thickness. Feces is seen throughout the colon from cecum to the rectum. There is no mass or obstruction. The appendix is visualized and appears normal. Normal abdominal aorta. Normal inferior vena cava. Normal retroperitoneum. Normal urinary bladder. Unremarkable vaginal cuff. There are phleboliths pelvis without lymphadenopathy. No soft tissue mass. No free air or free fluid is seen within the peritoneal cavity. Normal abdominal wall. Normal osseous structures. CT/Abdomen/Pelvis W IV Cont ONLY IMPRESSION: 1. Normal appendix. 2. No evidence of local recurrence or metastatic disease. 3. Increased colonic feces. Question constipation. 4. Resolution of the trace ascites and pleural effusion seen on the previous examination. Electronically Signed: Evaristo Dowling DO at 18:49 EDT Reading Location ID and State: [facility] / [place] Tel [phone], Service support ,
--- NOTE | 2023-01-08 18:30 | CT_ITS ---
STUDY: CT BRAIN WITH AND WITHOUT CONTRAST REASON FOR EXAM: Female, 52 years old. 8. Left sided paresthesias. History of uterine cancer. RADIATION DOSAGE (If Supplied By Facility): CTDIvol = ( 44.99 ) mGy, DLP = ( 1580.97 ) mGycm TECHNIQUE: Transaxial CT imaging of the brain was performed pre and post contrast administration. The examination was performed with intravenous administration of 100ML OF ISOVUE 370. Individualized dose optimization techniques were used for this CT. COMPARISON: None. FINDINGS: Normal soft tissue structures. Normal calvarium. Normal size ventricles and extra-axial spaces for the patient''s age. Normal white matter tracts of the cerebral hemispheres. Normal basal ganglia and thalami. Normal brainstem. Normal cerebellum. There is no intracranial hemorrhage. There are no findings of an acute ischemic infarction. There is no abnormal contrast enhancement. The intracranial vasculature appears grossly normal. Normal visualized paranasal sinuses. CT/Brain/Head W/WO Contrast IMPRESSION: Normal unenhanced and enhanced CT scan of the brain. AIDOC was utilized to assist in identifying pertinent positive findings in this case. Electronically Signed: Evaristo Dowling DO at 18:51 EDT ,
[2023-01-08 18:46] VITALS: BP 106/75; PULSE 90; RESP 16; O2SAT 100
== END 2023-01-08 19:19 | disposition home or self-care (01) ==
PROVIDERS: Emergency Provider Emergency Medicine; PCP Family Medicine; Visit Provider Emergency Medicine
DX: R20.2 Paresthesia of skin (principal); R10.31 Right lower quadrant pain; Z87.891 Personal history of nicotine dependence; R35.0 Frequency of micturition; R51.9 Headache, unspecified
CPT/HCPCS: 70470; 74177; 80048; 81001; 85025; 96360; 99283; J7030; J7040; Q9967; A4216

== ENCOUNTER → 2023-08-06 | Outpatient (CLI) | payer BC, SELFPAY ==
--- NOTE | 2023-08-06 17:02 | MRI_ITS ---
STUDY: MRI RIGHT WRIST WITHOUT CONTRAST REASON FOR EXAM: Female, 52 years old. History of adenocarcinoma of the uterus. Complaining of wrist pain - bone mets. TECHNIQUE: Standardized fat and water weighted pulse sequences were obtained in all 3 orthogonal planes. COMPARISON: None. FINDINGS: There is a 1.3 cm septated ganglion cyst adjacent to the anterior margin of the radiocarpal joint (coronal STIR series 4 image 7). Normal visualized distal radius and ulna. Normal distal radioulnar articulation (DRUJ). Normal triangular fibrocartilaginous complex (TFCC). Intact carpal bones. 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 There is a 5 mm cyst in the capitate. There is a 1.4 cm septated pisotriquetral synovial cyst (sagittal T2 series 7 images 8-9). Normal visualized interosseous scapholunate ligament. Normal visualized dorsal (extrinsic) ligaments. Normal visualized volar (extrinsic) ligaments. Normal extensor tendons. Normal flexor tendons. Normal carpal tunnel with a normal median nerve. There is degenerative arthrosis of the carpometacarpal articulation of the thumb with mild radial subluxation of the first metacarpus, mild osseous fragmentation, and a small joint effusion. Normal second through fifth carpometacarpal articulations. Normal visualized metacarpal bones. There are no osseous bone lesions or masses. MRI/Upper Ext Joint Only(Routine) IMPRESSION: 1.3 cm septated ganglion cyst adjacent to the anterior margin of the radiocarpal joint. 1.4 cm septated pisotriquetral synovial cyst. 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 No osseous bone lesions or masses. Electronically Signed: Chance Leon MD at 10:04 EDT ,
== END | disposition home or self-care (01) ==
LOC: MRI 16:48
PROVIDERS: PCP Family Medicine
DX: C55 Malignant neoplasm of uterus, part unspecified (principal)
CPT/HCPCS: 73221